=== PATIENT | female | born 1975 | race Caucasian/White ===

== ENCOUNTER 2020-05-25 07:30 | Outpatient (REF) | payer OTHER, SELFPAY ==
[2020-05-25 08:56] LABS: MANUAL DIFF FLAG NO
[2020-05-25 09:08] LABS: Basophils Absolute Auto 0.1 X10*3/uL (0.0-0.2); Basophils Percent Auto 0.9 % (0-2); Eosinophils Absolute Auto 0.4 X10*3/uL (0.0-0.4); Hematocrit 42.8 % (37-47); Hemoglobin 14.1 g/dl (12.0-16.0); Imm Gran Abs Auto 0.02 X10*3/uL (0.00-0.03); Imm Gran Pct Auto 0.3 % (0.0-0.4); Lymphocytes Absolute Auto 1.6 X10*3/uL (1.2-4.9); Lymphocytes Percent Auto 23.3 % (20-40); Mean Corpuscular HGB Conc 32.9 g/dl (31.0-35.0); Mean Corpuscular Hemoglobin 30.5 pg (27.0-33.0); Mean Corpuscular Volume 92.4 fL (80-98); Mean Platelet Volume 11.2 fL (9.4-12.3); Monocytes Absolute Auto 0.7 X10*3/uL (0.1-1.2); Monocytes Percent Auto 10.2 % (2-11); Neutrophils Absolute Auto 4.1 X10*3/uL (2.0-8.3); Neutrophils Percent Auto 59.3 % (45-73); Platelet Count 242 X10*3/uL (160-400); Red Blood Count 4.63 X10*6/uL (4.20-5.50); Red Cell Distribution Width 12.3 % (11.0-16.0)
[2020-05-25 09:11] LABS: Glucose Urine UA NEG (NEG); Leukocyte Esterase Urine NEG (NEG); Nitrite Urine NEG (NEG); PH 5.5 (5.0-8.0); Specific Gravity - Urine 1.025 (1.005-1.025); Urine Blood 2+ (NEG); Urine Ketones NEG (NEG); Urine Protein NEG (NEG-TRACE)
[2020-05-25 09:15] LABS: Appearance Urine HAZY; Color Urine YELLOW
[2020-05-25 09:23] LABS: Alanine Aminotransferase 19 U/L (0-31); Albumin Level 4.6 g/dL (3.5-5.0); Alkaline Phosphatase 73 U/L (39-117); Anion Gap 13 (12-20); Aspartate Amino Transferase 14 U/L (5-31); Bilirubin Total 0.4 mg/dL (0.0-1.0); Blood Urea Nitrogen 15 mg/dL (9-16); Calcium 9.1 mg/dL (8.4-10.2); Carbon Dioxide 25 mmol/L (22-29); Chloride 106 mmol/L (96-108); Cholesterol 204 mg/dL; Estimated Glomerular Filt Rate > 60; Glucose Fasting 98 mg/dL (60-99); HDL Cholesterol 77 mg/dL; LDL Cholesterol Calculated 117 mg/dl; Potassium 4.7 mmol/l (3.3-5.1); Sodium 139 mmol/L (135-145); Total Protein 7.6 g/dL (6.5-8.0); Triglycerides 54 mg/dL
[2020-05-25 09:23] LABS: Bacteria Urine 4+ /LPF; Squamous Epithelial Cell Urine 2+ /LPF; WBC Urine 0-2 /HPF (0-4)
== END 2020-05-25 07:31 | disposition home or self-care (01) ==
LOC: HO.LAB 07:30
PROVIDERS: Visit Provider Internal Medicine
DX: R31.9 Hematuria, unspecified (principal); Z00.00 Encounter for general adult medical examination without abnormal findings; I10 Essential (primary) hypertension
CPT/HCPCS: 36415; 80053; 80061; 81001; 81003; 85025

== ENCOUNTER 2021-06-08 10:15 | Outpatient (REF) | payer OTHER, SELFPAY ==
[2021-06-08 10:17] LABS: MANUAL DIFF FLAG NO
[2021-06-08 11:02] LABS: Basophils Absolute Auto 0.1 X10*3/uL (0.0-0.2); Basophils Percent Auto 0.6 % (0-2); Eosinophils Absolute Auto 0.5 X10*3/uL (0.0-0.4); Eosinophils Percent Auto 6.1 % (0-4); Hematocrit 43.2 % (37.0-47.0); Hemoglobin 14.1 g/dl (12.0-16.0); Imm Gran Abs Auto 0.03 X10*3/uL (0.00-0.03); Imm Gran Pct Auto 0.4 % (0.0-0.4); Lymphocytes Percent Auto 25.8 % (20-40); Mean Corpuscular HGB Conc 32.6 g/dl (31.0-35.0); Mean Corpuscular Hemoglobin 29.3 pg (27.0-33.0); Mean Corpuscular Volume 89.8 fL (80.0-98.0); Mean Platelet Volume 10.6 fL (9.4-12.3); Monocytes Absolute Auto 0.7 X10*3/uL (0.1-1.2); Monocytes Percent Auto 8.9 % (2-11); Neutrophils Absolute Auto 4.5 x10*3/uL (2.0-8.3); Neutrophils Percent Auto 58.2 % (45-73); Platelet Count 242 X10*3/uL (160-400); Red Blood Count 4.81 X10*6/uL (4.20-5.50); Red Cell Distribution Width 12.3 % (11.0-16.0); White Blood Count 7.7 X10*3/uL (4.8-10.8)
[2021-06-08 11:16] LABS: Appearance Urine HAZY; Color Urine YELLOW; Glucose Urine UA NEG (NEG); Leukocyte Esterase Urine TRACE (NEG); Nitrite Urine NEG (NEG); Urine Blood 1+ (NEG); Urine Ketones NEG (NEG); Urine Protein NEG (NEG-TRACE)
[2021-06-08 11:28] LABS: Alanine Aminotransferase 23 U/L (0-31); Albumin Level 4.4 g/dL (3.5-5.0); Alkaline Phosphatase 80 U/L (39-117); Anion Gap 13 (12-20); Aspartate Amino Transferase 17 U/L (5-31); Bilirubin Total 0.5 mg/dL (0.0-1.0); Blood Urea Nitrogen 13 mg/dL (9-16); Calcium 9.8 mg/dL (8.4-10.2); Carbon Dioxide 24 mmol/L (22-29); Chloride 107 mmol/L (96-108); Cholesterol 201 mg/dL; Estimated Glomerular Filt Rate > 60; Glucose Fasting 103 mg/dL (60-99); HDL Cholesterol 59 mg/dL; LDL Cholesterol Calculated 125 mg/dl; Potassium 4.5 mmol/L (3.3-5.1); Sodium 139 mmol/L (135-145); Total Protein 7.8 g/dL (6.5-8.0); Triglycerides 87 mg/dL
[2021-06-08 11:45] LABS: Bacteria Urine 2+ /LPF; Squamous Epithelial Cell Urine 1+ /LPF; WBC Urine 0-2 /HPF (0-4)
== END 2021-06-08 10:16 | disposition home or self-care (01) ==
LOC: HO.LNP 10:15
PROVIDERS: Visit Provider Internal Medicine
DX: Z00.00 Encounter for general adult medical examination without abnormal findings (principal); I10 Essential (primary) hypertension; R31.9 Hematuria, unspecified
CPT/HCPCS: 80053; 80061; 81001; 81003; 85025

== ENCOUNTER 2022-05-06 08:50 | Day surgery (SDC) | payer OTHER, SELFPAY ==
--- NOTE | 2022-05-05 12:23 | HO.ANESPROP2 ---
Documented by User: Aby Carrillo NP 05/05/22 12:24 HPI - Anesthesia Eval Consult details Narrative: 46yo F for Upper Endoscopy and Colonoscopy [facility], [facility] Surgical History Surgical History History of ear surgery Hx of tonsillectomy Social History Social History Patient Tobacco Use Status: Former Tobacco user Quit Date: 2009 Use of substances other than those prescribed or required for medical reasons: No Are you DNR?: No Advance Directives: No Advance Directives Information Provided: Yes Meds Allergies Allergy/AdvReac Type Severity Reaction Status Date / Time amoxicillin Allergy Unknown Verified 05/05/22 12:12 azithromycin Allergy Unknown Verified 05/05/22 12:12 Exam Exam Date and Time: May 05, 2022 122 Assessment and Plan Assessment Anesthesia Assessment: Chart Reviewed Documented by User: Kiara Klein MD 05/06/22 10:05 [facility] Active Problems Active Problems: Snores but denies CLOTILDE. No sleep study Obesity Family History Family history of problems with anesthesia: No Surgical History Surgical History History of ear surgery Hx of tonsillectomy History of Problems with Anesthesia: No Social History Social History Patient Tobacco Use Status: Former Tobacco user Quit Date: 2009 Use of substances other than those prescribed or required for medical reasons: No Are you DNR?: No Advance Directives: No Advance Directives Information Provided: Yes Meds Allergies Allergy/AdvReac Type Severity Reaction Status Date / Time amoxicillin Allergy Unknown Verified 05/05/22 12:12 azithromycin Allergy Unknown Verified 05/05/22 12:12 Exam Height,Weight and Vital Signs: Height 5 ft 7 in Weight 108.862 kg Vital Signs Temp Pulse Resp BP Pulse Ox O2 Del Method 05/06/22 09:23 97.4 F 82 18 164/109 H 98 Room Air Pertinent Lab Results Pertinent Lab Results: Lab Results 05/06/22 Range/Units Unknown Urine Test NEGATIVE (NEGATIVE) Narrative Narrative: Healing cold sore corner of mouth left Airway Mallampati Class: II (Small mouth opening) TM Dist: >3cm Neck ROM: Full Loose/Missing/Broken Teeth: No (Denies broken, loose, missing teeth) Heart: RRR Lungs: CTAB Assessment and Plan Assessment Anesthesia Assessment: Anesthesia Plan Discussed Final Anesthetic Review Family History of Problems with Anesthesia: No History of Problems with Anesthesia: No NPO: Yes ASA Class: III Final Preanesthetic Review: No Changes in Pt Med Stat, Meds/Allgs Chart Reviewed, Consent Obtained/Reviewed and Anes Risks/Benef Reviewed Patient Risk: Intermediate Procedure Risk: Low Assessment/Block/Sedation in SS: Assess/Block/Sedation-SS Anesthetic Plan Anesthetic Plan: GA and MAC: Disposition: Standard PACU
[2022-05-06 09:23] VITALS: BP 164/109; PULSE 82; RESP 18; TEMP 36.3; O2SAT 98; BMI 37.5
[2022-05-06 09:24] LABS: UPreg QC Valid YES; Urine Pregnancy NEGATIVE (NEGATIVE)
[2022-05-06] MEDS: Lactated Ringers 1,000 ML 100 ML IVCONT (09:45)
[2022-05-06 11:04] VITALS: BP 138/88; PULSE 82; RESP 16; TEMP 36.1; O2SAT 99
--- NOTE | 2022-05-06 11:10 | P.BOP_ITS ---
Brief Operative Note Date of Service: 05/06/22 Pre-op diagnosis: GERD, Screening Post-op diagnosis: other (Hiatal hernia, Diverticulosis) Procedure: EGD with biopsies, Colonoscopy to the cecum Surgeon: Zbigniew Hernandez Anesthesia: MAC Was an Patient Safety Coordinator used for this Procedure?: No Estimated blood loss (mL): 2.0 Pathology: other (A. EG Junction at 32cm B. Esophagus at 25cm) Condition: stable Disposition: PACU
[2022-05-06 11:19] VITALS: BP 140/89; PULSE 79; RESP 16; O2SAT 97
[2022-05-06 11:28] VITALS: BP 139/94; PULSE 77; RESP 14; TEMP 36.2; O2SAT 99
--- NOTE | 2022-05-06 11:57 | OP_ITS ---
SURGEON: Zbigniew Hernandez MD INDICATIONS: The patient presents for evaluation of gastroesophageal reflux and colorectal cancer screening. Full consent has been obtained from her for this, including risks of bleeding and perforation. PREOPERATIVE DIAGNOSIS: Gastroesophageal reflux and colorectal cancer screening. POSTOPERATIVE DIAGNOSIS: PROCEDURE PERFORMED: Esophagogastroduodenoscopy with biopsies, and colonoscopy to the cecum. ESTIMATED BLOOD LOSS: COMPLICATIONS: ANESTHESIA: Monitored anesthesia care. ASSISTANTS: SPECIMENS: POSTOPERATIVE DIAGNOSES: Gastroesophageal reflux and colorectal cancer screening, moderate-sized hiatal hernia, diverticulosis, and internal hemorrhoids. DESCRIPTION OF PROCEDURE: The patient was placed in the left lateral decubitus position. The Olympus video gastroscope was passed in the posterior oropharynx and upper esophagus under direct vision. The scope was passed slowly to the distal esophagus. The gastroesophageal junction appeared at 32 cm. This area was notable for some edema, erythema, and some minimal friability. There were no erosions, ulceration, nor stricture. The scope easily entered into the stomach. There was a moderate-sized hiatal hernia. The hiatal hernia mucosa appeared normal. The scope was advanced to the pylorus and the duodenum was cannulated to the descending portion. The duodenum including the bulb appeared normal without mass or ulceration. The scope was withdrawn back into the stomach. The gastric antrum and body appeared normal with good peristalsis. The scope was retroflexed visualizing the proximal stomach carefully, which appeared normal, without any sign of mass or ulceration. Scope was straightened and withdrawn back to the esophagus. The gastroesophageal junction appeared patent, and I did not feel it needed dilation. Biopsies were obtained at the EG junction at 32 cm. Proximal to this, the esophageal mucosa appeared normal. I did not visualize any proximal esophageal rings. Biopsies were obtained at 25 cm. The scope was withdrawn from the patient. She was turned around for the colonoscopy. The digital rectal exam revealed no abnormalities. The Olympus video pediatric colonoscope was entered into the rectum and advanced easily to the cecum. Once in the cecum, I did identify a normal-appearing cecal pouch with appendiceal orifice and a normal-appearing ileocecal valve. There was transillumination of light deep in the right lower quadrant. The scope was slowly withdrawn assessing all mucosal surfaces carefully. Preparation was excellent. The entire cecum appeared normal. I did not visualize any sign of polyps, colitis, nor angiodysplasia. There were occasional diverticula in the sigmoid colon. In the rectum, the scope was retroflexed visualizing small internal hemorrhoids, but no other pathology. The rectal mucosa appeared normal. The scope was straightened and withdrawn from the patient. She tolerated both procedures well and was returned to the recovery area in stable condition. IMPRESSION: 1. Hiatal hernia, gastroesophageal reflux. 2. Occasional sigmoid diverticulosis. 3. Internal hemorrhoids. PLAN: Given today's negative colonoscopy, I would recommend a followup colonoscopy in 10 years for further screening. Given the upper endoscopy findings and her symptoms, I do suspect she is having episodes of esophageal spasm in relation to the hiatal hernia and eating her food too quickly. I shall start her on omeprazole 20 mg daily. I advised her that eating a healthy diet, with small portions, slowly and carefully will help her symptoms as well. The hiatal hernia is probably playing a role in this as well since when she overeats that can be contribute to the reflux and spasm during a meal, with resultant dysphagia. I did advise her to see me in 2022 for a followup visit as well. MD BERT Santana/BRITTNEY / [id number] MTDD
== END 2022-05-06 11:55 | disposition home or self-care (01) ==
PROVIDERS: Nurse Practitioner; PCP Internal Medicine; Visit Provider Internal Medicine
PROC: (CPT 45378; principal; 2022-05-06 10:00)
DX: Z12.11 Encounter for screening for malignant neoplasm of colon (principal); K57.30 Diverticulosis of large intestine without perforation or abscess without bleeding; K64.8 Other hemorrhoids; K64.4 Residual hemorrhoidal skin tags; K21.9 Gastro-esophageal reflux disease without esophagitis; Z88.1 Allergy status to other antibiotic agents; Z87.891 Personal history of nicotine dependence
CPT/HCPCS: 45378; 43239; 81025; 88305

== ENCOUNTER → 2022-06-03 08:36 | Outpatient (BNVA) | payer OTHER, SELFPAY | PROVIDERS: PCP Internal Medicine; Visit Provider Physician Assistant Surgical | DX: E66.9 Obesity, unspecified (principal) ==

== ENCOUNTER 2022-07-01 10:40 | Outpatient (REF) | payer OTHER, SELFPAY ==
[2022-07-01 10:44] LABS: MANUAL DIFF FLAG NO
[2022-07-01 10:57] LABS: Basophils Absolute Auto 0.1 X10*3/uL (0.0-0.2); Basophils Percent Auto 0.8 % (0-2); Eosinophils Absolute Auto 0.6 X10*3/uL (0.0-0.4); Eosinophils Percent Auto 7.2 % (0-4); Hematocrit 41.5 % (37.0-47.0); Imm Gran Abs Auto 0.02 X10*3/uL (0.00-0.03); Imm Gran Pct Auto 0.3 % (0.0-0.4); Lymphocytes Absolute Auto 1.8 X10*3/uL (1.2-4.9); Lymphocytes Percent Auto 22.6 % (20-40); Mean Corpuscular HGB Conc 33.7 g/dl (31.0-35.0); Mean Corpuscular Hemoglobin 29.7 pg (27.0-33.0); Mean Corpuscular Volume 87.9 fL (80.0-98.0); Mean Platelet Volume 10.7 fL (9.4-12.3); Monocytes Absolute Auto 0.7 X10*3/uL (0.1-1.2); Monocytes Percent Auto 8.5 % (2-11); Neutrophils Absolute Auto 4.8 x10*3/uL (2.0-8.3); Neutrophils Percent Auto 60.6 % (45-73); Platelet Count 255 X10*3/uL (160-400); Red Blood Count 4.72 X10*6/uL (4.20-5.50); Red Cell Distribution Width 12.5 % (11.0-16.0)
[2022-07-01 10:58] LABS: Appearance Urine Clear; Color Urine Yellow; Glucose Urine UA Negative (Negative); Leukocyte Esterase Urine Small (1+) (Negative); Nitrite Urine Negative (Negative); PH 7.5 (5.0-9.0); UMIC TRIGGER UACC YES; Urine Blood Trace (Negative); Urine Ketones Negative (Negative); Urine Protein Negative (Neg-Trace)
[2022-07-01 11:11] LABS: Bacteria Urine 1+ (None Seen); Hyaline Casts Urine 0-2 /LPF (0-2); UACC Culture Trigger YES
[2022-07-01 11:14] LABS: Alanine Aminotransferase 24 U/L (0-31); Albumin Level 4.3 g/dL (3.5-5.0); Alkaline Phosphatase 80 U/L (39-117); Anion Gap 14 (12-20); Aspartate Amino Transferase 18 U/L (5-31); Bilirubin Total 0.6 mg/dL (0.0-1.0); Blood Urea Nitrogen 11 mg/dL (9-16); Calcium 9.4 mg/dL (8.4-10.2); Carbon Dioxide 25 mmol/L (22-29); Chloride 106 mmol/L (96-108); Cholesterol 205 mg/dL; Estimated Glomerular Filt Rate > 60; Glucose Fasting 88 mg/dL (60-99); HDL Cholesterol 62 mg/dL; LDL Cholesterol Calculated 129 mg/dl; Potassium 4.5 mmol/L (3.3-5.1); Sodium 140 mmol/L (135-145); Total Protein 7.4 g/dL (6.5-8.0); Triglycerides 74 mg/dL
== END 2022-07-01 10:41 | disposition home or self-care (01) ==
LOC: HO.LNP 10:40
PROVIDERS: Visit Provider Internal Medicine
DX: Z00.00 Encounter for general adult medical examination without abnormal findings (principal); I10 Essential (primary) hypertension; R31.9 Hematuria, unspecified
CPT/HCPCS: 80053; 80061; 81001; 85025; 87086

== ENCOUNTER 2023-07-06 07:37 | Outpatient (REF) | payer OTHER, SELFPAY ==
[2023-07-06 07:55] LABS: MANUAL DIFF FLAG NO
[2023-07-06 08:27] LABS: Basophils Absolute Auto 0.1 X10*3/uL (0.0-0.2); Basophils Percent Auto 0.9 % (0-2); Eosinophils Absolute Auto 0.4 X10*3/uL (0.0-0.4); Eosinophils Percent Auto 4.6 % (0-4); Hematocrit 41.1 % (37.0-47.0); Hemoglobin 14.3 g/dl (12.0-16.0); Imm Gran Abs Auto 0.05 X10*3/uL (0.00-0.03); Imm Gran Pct Auto 0.6 % (0.0-0.4); Lymphocytes Absolute Auto 1.9 X10*3/uL (1.2-4.9); Lymphocytes Percent Auto 23.2 % (20-40); Mean Corpuscular HGB Conc 34.8 g/dl (31.0-35.0); Mean Corpuscular Hemoglobin 30.4 pg (27.0-33.0); Mean Corpuscular Volume 87.3 fL (80.0-98.0); Mean Platelet Volume 10.6 fL (9.4-12.3); Monocytes Absolute Auto 0.7 X10*3/uL (0.1-1.2); Monocytes Percent Auto 8.7 % (2-11); Neutrophils Absolute Auto 5.1 x10*3/uL (2.0-8.3); Platelet Count 270 X10*3/uL (160-400); Red Blood Count 4.71 X10*6/uL (4.20-5.50); Red Cell Distribution Width 12.4 % (11.0-16.0); White Blood Count 8.2 X10*3/uL (4.8-10.8)
[2023-07-06 08:33] LABS: Appearance Urine Clear; Color Urine Yellow; Glucose Urine UA Negative (Negative); Leukocyte Esterase Urine Negative (Negative); Nitrite Urine Negative (Negative); PH 5.5 (5.0-9.0); UMIC TRIGGER UACC YES; Urine Blood Small (1+) (Negative); Urine Ketones Negative (Negative); Urine Protein Negative (Neg-Trace)
[2023-07-06 08:54] LABS: Bacteria Urine Trace (None Seen); Hyaline Casts Urine 0-2 /LPF (0-2); RBC Urine 0-2 /HPF (0-2); Squamous Epithelial Cell Urine 0-2 /HPF (0-2); WBC Urine 0-5 /HPF (0-5)
[2023-07-06 09:02] LABS: Alanine Aminotransferase 23 U/L (0-31); Albumin Level 4.4 g/dL (3.5-5.0); Alkaline Phosphatase 82 U/L (39-117); Anion Gap 13 (12-20); Aspartate Amino Transferase 16 U/L (5-31); Bilirubin Total 0.4 mg/dL (0.0-1.0); Blood Urea Nitrogen 14 mg/dL (9-16); Calcium 9.8 mg/dL (8.4-10.2); Carbon Dioxide 21 mmol/L (22-29); Chloride 104 mmol/L (96-108); Cholesterol 190 mg/dL (<200); Estimated Glomerular Filt Rate > 60; Glucose Fasting 100 mg/dL (60-99); HDL Cholesterol 56 mg/dL (>40); LDL Cholesterol Calculated 121 mg/dL (<100); Sodium 134 mmol/L (135-145); Total Protein 8.1 g/dL (6.5-8.0); Triglycerides 69 mg/dL (<150)
== END 2023-07-06 07:38 | disposition home or self-care (01) ==
LOC: HO.LAB 07:37
PROVIDERS: Visit Provider Internal Medicine
DX: Z00.00 Encounter for general adult medical examination without abnormal findings (principal); I10 Essential (primary) hypertension
CPT/HCPCS: 36415; 80053; 80061; 81001; 85025

== ENCOUNTER 2023-07-14 07:06 | Outpatient (REF) | payer OTHER, SELFPAY ==
--- NOTE | ~2023-07-14 | XR_ITS ---
EXAMINATION: XR CHEST CLINICAL INFORMATION: Wheezing. COMPARISON: None available. TECHNIQUE: 2 views of the chest were obtained. FINDINGS: Mild degenerative changes in the thoracic spine. No pleural effusion. The lungs are well inflated. The heart size is normal. Mild bibasilar streaky opacities may represent bronchiectatic change and/or atelectasis, although pneumonia could also contribute to this appearance. XR/XR chest 2V IMPRESSION: Mild bibasilar streaky opacities may represent bronchiectatic change and/or atelectasis, although pneumonia could also contribute to this appearance.
== END 2023-07-14 07:07 | disposition home or self-care (01) ==
LOC: HO.XRAY 07:06
PROVIDERS: PCP Internal Medicine; Visit Provider Internal Medicine
DX: R06.2 Wheezing (principal)
CPT/HCPCS: 71046

== ENCOUNTER 2023-07-28 07:20 | Outpatient (REF) | payer OTHER, SELFPAY ==
--- NOTE | ~2023-07-28 | XR_ITS ---
EXAMINATION: XR CHEST CLINICAL INFORMATION: Wheezing. COMPARISON: 07/14/2023 TECHNIQUE: 2 views of the chest were obtained. FINDINGS: The lungs are well inflated. There is no gross pneumothorax. Mild degenerative changes in the thoracic spine. No pleural effusion. Heart size is normal. Mild bilateral central peribronchial thickening. Mild bibasilar opacities may represent prominent vasculature, atelectasis and/or bronchiectatic change. XR/XR chest 2V IMPRESSION: Mild bilateral central peribronchial thickening. Mild bibasilar opacities may represent prominent vasculature, atelectasis and/or bronchiectatic change. An inflammatory/infectious process could also be considered in the appropriate clinical setting.
== END 2023-07-28 07:21 | disposition home or self-care (01) ==
LOC: HO.XRAY 07:20
PROVIDERS: PCP Internal Medicine; Visit Provider Internal Medicine
DX: R06.2 Wheezing (principal)
CPT/HCPCS: 71046

== ENCOUNTER 2024-07-09 10:34 | Outpatient (REF) | payer OTHER, SELFPAY ==
[2024-07-09 10:36] LABS: MANUAL DIFF FLAG NO
[2024-07-09 11:20] LABS: Appearance Urine Clear; Basophils Absolute Auto 0.1 X10*3/uL (0.0-0.2); Basophils Percent Auto 0.7 % (0-2); Color Urine Yellow; Eosinophils Absolute Auto 0.3 X10*3/uL (0.0-0.4); Eosinophils Percent Auto 3.7 % (0-4); Glucose Urine UA Negative (Negative); Hematocrit 43.9 % (37.0-47.0); Hemoglobin 14.6 g/dl (12.0-16.0); Imm Gran Abs Auto 0.05 X10*3/uL (0.00-0.03); Imm Gran Pct Auto 0.5 % (0.0-0.4); Leukocyte Esterase Urine Negative (Negative); Lymphocytes Absolute Auto 2.1 X10*3/uL (1.2-4.9); Lymphocytes Percent Auto 22.7 % (20-40); Mean Corpuscular HGB Conc 33.3 g/dl (31.0-35.0); Mean Corpuscular Hemoglobin 29.5 pg (27.0-33.0); Mean Corpuscular Volume 88.7 fL (80.0-98.0); Mean Platelet Volume 10.6 fL (9.4-12.3); Monocytes Absolute Auto 0.9 X10*3/uL (0.1-1.2); Monocytes Percent Auto 9.3 % (2-11); Neutrophils Absolute Auto 5.8 x10*3/uL (2.0-8.3); Neutrophils Percent Auto 63.1 % (45-73); Nitrite Urine Negative (Negative); Platelet Count 334 X10*3/uL (160-400); Red Blood Count 4.95 X10*6/uL (4.20-5.50); Red Cell Distribution Width 12.5 % (11.0-16.0); UMIC TRIGGER UACC YES; Urine Blood Trace (Negative); Urine Ketones Negative (Negative); Urine Protein Negative (Neg-Trace); White Blood Count 9.2 X10*3/uL (4.8-10.8)
[2024-07-09 11:27] LABS: Bacteria Urine Trace (None Seen); RBC Urine 0-2 /HPF (0-2); WBC Urine 0-5 /HPF (0-5)
--- OUTSIDE RECORDS SUMMARY | 2024-07-09 11:33 | XMS_ITS ---
Author Organization Adrien Lovelace MD Address [address] [place] [phone] Care Team Providers Care Flight Inspector Name Role Phone Adrien Lovelace Primary Care Provider REASON FOR VISIT refill Medications Medication SIG (Take, Route, Fr equency, Duration) Notes Start Date End Date Status valACYclovir HCl 1 GM take 2 tablets twi ce a day orally x1 day Orally twice a day for 7 days Active Encounters Encounter Location Date Provider Diagnosis Adrien Lovelace MD [address] [place] [phone] 04/26/2024 Adrien Lovelace Cold sore B00.1 Assessments [...] days Next Appt Details Provider Name:Adrien kraus, 07/19/2024 09:30:00 AM, [address] [facility], Suite [facility], [place], [place], [phone], Progress Notes * MADIHA Fabiola JDOB:0 1975 (48 yo F)Acc No.[id number]:04/26/2024 Patient:?Jade Alexander :1975???Age:48 Y???Sex:Female Address:[address] [place] [address] * Refills? Refill valACYclovir HCl Tablet, 1 GM, Orally, 20, take 2 tablets twice a day orally x1 day, twice a day, 7 days, Refills=5 * true * Date:? Generated for Christelle robles/Radha/Eleanoritting on:?07/09/2024 11:33 AM EST
--- OUTSIDE RECORDS SUMMARY | 2024-07-09 11:34 | XMS_ITS | Patient Health Record ---
Author Organization [facility] Address [address] [place] [phone] Care Team Providers Care Chief Development Officer Name Role Phone Adrien Lovelace MD Primary Care Provider Zbigniew Pemberton Unavailable [phone] ALLERGIES Allergen (clinical drug ingredient) Drug/Non Drug Allergy documented on EMR Reaction Allergy Type Onset Date Status azithromycin Azithromycin Unknown Drug Allergy A ctive amoxicillin Amoxicillin Unknown Drug Allergy Act madhuri REASON FOR REFERRAL No Information MEDICATIONS Medication SIG (Take, Route, Frequency, Duration) Notes Start Date End Date Status Mirena (52 MG) 20 MCG/DAY as directed Intrauterine Active Omeprazole 20 MG TAKE 1 CAPSULE BY [facility] EVERY DAY IN THE MORNING for 90 Active Lisinopril-hydroCHLOROthi azide 10-12.5 MG Oral for 90 Active IMMUNIZATIONS Vaccine Route Administration Date Status Comme nts Influenza Unknown 03/16/2022 Refused SOCIAL HISTORY Tobacco Use: Social History Observation Description Date Details (start date - stop date) Former Smoker NA - NA Sex Assigned At : Social History Observation Description Sex Assigned At Unknown Tobacco Use/Smoking Question Answer Notes Patient is a former smoker Alcohol Screen Question Answer Notes Did you have a drink contain ing alcohol in the past year? Yes How often did you have a dri nk containing alcohol in the past year? Monthly or less (1 point) How many drinks did you have on a typical day when you were drinking in the past year? 1 or 2 drinks (0 point) How often did you have 6 or more drinks on one occasion in the past year? Never (0 point) Points 1 Interpretation Negative PROBLEMS Problem Type ICD Code Onset Dates Problem Status W/U Status Risk SNOMED Code Notes Problem GERD (gastroesophageal reflux disease) (K21.9) Active confirmed Gastroesophagea l reflux disease (926891292) Problem Colon cancer screening (Z12.11) Active confirmed Colon can cer screening (468500852) Problem Diverticulosis of large intestine without perforation or abscess without bleeding (K57.30) Active confirmed Diverticul ar disease of colon (304354317) Problem Gastroesophageal reflux disease (K21.9) Active confirmed Gastroesophagea l reflux disease (071351262) Problem Gastroesophageal reflux disease without esophagitis (K21.9) Active confirmed 442245797 Problem 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) Active confirmed 337096910 Problem Hiatal hernia (K44.9) Active confirmed 68175990 PLAN OF TREATMENT Future Test Test Name Order Date UPPER GI ENDOSCOPY 03/16/2022 COLONOSCOPY 03/16/2022 Insurance Providers Payer Name Payer Address Payer Phone Subscriber Number Group Number Insured Name Patient Relationship to Insured Coverage Start Date Coverage End Date [facility] [address] [place] [phone] [id number] LILLIANA WATTS Self - patient is the insured MEDICAL (GENERAL) HISTORY Medical History History ICD Code Denies AL,DM,CVA,Lung disease,renal dise ase HTN Negative screening colonoscopy in [facility] er 2021 EGD 04/2022 with a moderate sized hiatal hernia, gastroesophageal reflux, and tiny areas of intestinal metaplasia at the gastroesophageal junction without dysplasia; biopsies were negative for eosinophilic esophagitis Surgical History Surgery Date(Month/Year) Ears 1983 Tonsils 1991
--- OUTSIDE RECORDS SUMMARY | 2024-07-09 11:34 | XMS_ITS ---
Author Organization Adrien Lovelace MD Address [address] [place], [place] [phone] Care Team Providers Care Call Center Agent Name Role Phone Adrien Lovelace Primary Care Provider [phone] Allergies Allergen (clinical drug ingredient) Drug/Non Drug Allergy documented on EMR Reaction Allergy Type Onset Date Status amoxicillin / clavulanate Augmentin rash Drug Allergy Active azithromycin Z-Pack (uncoded) rash Allergy Active REASON FOR VISIT Sinus, c/o headache nonproductive cough, congestion x 3 weeks, Video [phone] Medications Medication SIG (Take, Route, Frequency, Duration) [...] Location Date Provider Diagnosis Adrien Lovelace MD [address] [place] [address] [place] [phone] 03/18/2024 Adrien Lovelace Acute recurrent maxillary sinusitis [...] for use Next Appt Details Provider Name:Adrien Welch ier, 07/19/2024 09:30:00 AM, [address] [place] [address], [place] [address], [place], [place], [phone], Progress Notes * Fabiola ALEXANDER JDOB:0 1975 (48 yo F)Acc No.[id number]:03/18/2024 Patient:?Jade Alexander Provider:?Adrien Lovelace MD :1975???Age:48 Y???Sex:Female D ate:03/18/2024 Address:[address] [place] [address] Subjective: * Chief Complaints: * ???SinusC/o headache nonprod uctive cough, congestion x 3 weeksVideo [phone] * HPI: ???Symptom(s):?Telehealth?Location of provider rendering services:?[address], [address],?Location of patient:?at address listed in demographics for today's visit,?Patient identification confirmed using:?Name, , SSN, Insurance information,?Telehealth method:?Video conference where patient is visible to the provider of care,?Consent:?Patient verbally consented to treatment, Patient verbally consented to billing insurance company, Patient informed of any privacy concerns related to method of visit.? patient is a 48 yo female video telehealth, here as emergency. cough congestion for 3 weeks. * ROS:?General/Constitutional:?Denies?Chills.?Denies?Fatigue.?Denies?Fever.?Admits?Headache.?ENT:?Patient denies?decreased sense of smell, any loss of taste, sore throat.?Denies?Ear pain.?Admits?Sinus pain.?Denies?Sore throat.?Respiratory:?Admits?Cough.?Denies?Shortness of breath at rest.?Denies?Shortness of breath with exertion.?Gastrointestinal:?Denies?Diarrhea.?Denies?Nausea.?Musculoskeletal:?Patient denies?muscle aches.?Peripheral Vascular:?Patient denies?red and blue toes.? * Medical History:? * Surgical History:? * Hospitalization/Major Diagno stic Procedure:? * Medications:?TakingOmeprazol e 20 MG Capsule Delayed Release 1 capsule [...] MCG/24HR Intrauterine Device as directed Intrauterine Taking Lisinopril- hydroCHLOROthiazide 10-12.5 MG Tablet TAKE 1 TABLET BY [...] reviewed and reconciled with the patient * Allergies:?Z-Pack: rashAugme ntin: rashyes[Allergies Verified] Objective: * Vitals:?Ht: 68, Wt:257, BMI: 39.07 weight at home 257 BP not taken no temp. * Examination: ???General Examination: ?GENERAL APPEARANCE:?alert, well hydrated, in no distress.? Assessment: * Assessment: 1.?Acute recurrent maxillary sinusitis - J01.01 (Primary)? Plan: * Treatment: * Procedure Codes:? * * Sign off status: Completed true * Provider:?Adrien Lovelace MD Date:?1 Generated for Christelle robles/Radha/eTransmitting on:?07/09/2024 11:34 AM EST History and Physical Notes * HPI (History of Present Illness) Category Sub-Category Detail Notes Category Not es Symptom(s) [facility] [address], [address] [...]
--- OUTSIDE RECORDS SUMMARY | 2024-07-09 11:34 | XMS_ITS ---
Author Organization [facility] Address [address] [place] [address] Care Team Providers Care Tester/Lift Trucker Name Role Phone Adrien Lovelace MD Primary Care Provider Zbigniew Pemberton Unavailable [phone] ALLERGIES Allergen (clinical drug ingredient) Drug/Non Drug Allergy documented on EMR Reaction Allergy Type Onset Date Status azithromycin Azithromycin Unknown Drug Allergy A ctive amoxicillin Amoxicillin Unknown Drug Allergy Act madhuri REASON FOR VISIT Patient presents today for gerd MEDICATIONS Medication SIG (Take, Route, Frequency, Duration) Notes Start Date End Date Status Mirena (52 MG) 20 MCG/DAY as directed Intrauterine Active Omeprazole 20 MG TAKE 1 CAPSULE BY [facility] EVERY MORNING for 90 Active Lisinopril-hydroCHLOROthi azide 10-12.5 MG Oral for 90 Active SOCIAL HISTORY Tobacco Use: Social History Observation [...] W/U Status Risk SNOMED Code Notes Problem Gastroesophageal reflux disease without esophagitis (K21.9) Active confirmed 490237193 Problem 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) Active confirmed 676455862 Problem Hiatal hernia (K44.9) Active confirmed 58920430 VITAL SIGNS BMI 37.59 kg/m2 03/16/2023 Blood pressure systolic 000 mm Hg 03/16/20 23 Blood pressure diastolic 00 mm Hg 023 Height 67 in 03/16/2023 Temperature 98.0 degrees Fahrenheit 03/16/20 23 Weight 240 lbs 03/16/2023 Encounters Encounter Location Date Provider Diagnosis [facility] [address] [place] [address] 03/16/2023 Zbigniew Mary Gastroesophageal ref lux disease without esophagitis K21.9 ; Clinton's esophagus without dysplasia K22.70 and Hiatal hernia K44.9 ASSESSMENTS Encounter Date Diagnosis Assessment Notes Treatment Notes Treatment Clinical Notes 03/16/2023 Gastroesophageal reflux disease without esophagitis (ICD-10 - K21.9) Continue omeprazole Repeat upper endoscopy in 04/202503/16/2023 Clinton's esophagus without dysplasia (ICD-10 - K22.70) 03/16/2023 Hiatal hernia (ICD-1 0 - K44.9) 03/16/2023 Other Repeat colonoscopy in 2031 PLAN OF TREATMENT Treatment Notes Assessment Notes Gastroesophageal reflux dise ase without esophagitis Continue omeprazole Repeat upper endoscopy in 04/2025 Other Repeat colonoscopy i n 2031 Next Appt Details Follow Up: prn, Reason: Progress Notes * Examination Category Sub-Category Detail Notes General Examination GENERAL APPEARANCE: pleasant , well nourished, well developed, in no acute distress HEAD: EYES: sclera non-icteric EARS: NOSE: THROAT: NECK/THYROID: no cervical lymphade nopathy, neck supple HEART: S1, S2 normal CHEST: LUNGS: clear to auscultatio n bilaterally ABDOMEN: normal bowel sounds, no guarding or rigidity, no guarding or rigidity, no masses palpable, soft, nontender, nondistended NEUROLOGIC: alert and oriented SKIN: nonjaundiced, no spi brijesh angiomata EXTREMITIES: no edema PERIPHERAL PULSES: BACK: BREASTS: MUSCULOSKELETAL: MALE GENITOURINARY: LYMPH NODES: RECTAL EXAM: FEMALE GENITOURINARY: ORAL CAVITY: mucosa moist
--- OUTSIDE RECORDS SUMMARY | 2024-07-09 11:34 | XMS_ITS ---
Author Organization Adrien Lovelace MD Address [address] [place], [place] [phone] Care Team Providers Care Tailer Off Name Role Phone Adrien Lovelace Primary Care Provider [phone] Results Component Value Reference Range Notes Complete Blood Count Auto Di ff (Not yet reviewed by provider) Interpretation: Performing Lab:[facility], [address] [place] [phone] Notes/Report: White Blood Count 9.2 4.8-10.8 X10*3/uL [...] X10*3/uL NRBC Abs Auto 0.000 0.0-0.012 X10*3/uL UA ClnCatch+Micro w/rflx Cul t (Not yet reviewed by provider) Interpretation: Performing Lab:[facility], [address] [place] [phone] Notes/Report: Urine, Clean Catch Color Urine Yellow Appearance Urine Clear PH 6.0 5.0-9.0 Glucose Urine UA Negative Negative mg/dL Urine Blood Trace Negative Specific [place] - Urine 1.020 1.005-1.025 Urine Protein Negative [...] Date Provider Diagnosis Adrien Lovelace MD [address] [facility] [address] [place], [place] [phone] 07/09/2024 Adrien Lovelace Annual physical exam Z00.00 ; Essential hypertension I10 and Hematuria R31.9 Assessments Encounter Date Diagnosis (ICD Code) Assessment Notes Treatment Notes Treatment Clinical Notes Section Notes 07/09/2024 Annual physical exam (ICD-10 - Z00.00) 07/09/2024 Essential hypertension (ICD-10 - I10) 07/09/2024 Hematuria (ICD-10 - R31.9) Plan Of Treatment Pending Test Test Name Order Date Complete Blood Count Auto Diff 5 Comprehensive [place]. Panel Fast 5 Lipid Panel 07/09/2024 UA ClnCatch+Micro w/rflx Cult 07/09/2024 Next Appt Details Provider Name:Adrien gordillor, 07/19/2024 09:30:00 AM, [address], [address], [place], [place], [phone], Progress Notes * Fabiola ALEXANDER JDOB:0 1975 (48 yo F)Acc No.[id number]:07/09/2024 Progress Note Patient:?Jade ALEXANDER J Provider:?Adrien Lovelace MD :1975???Age:48 Y???Sex:Female D ate:07/09/2024 Address:[address] [place], [place] [phone] Subjective: * Chief Complaints: * ???1. FASTING LABS. * Medical History:? Objective: * Vitals:? Assessment: * Assessment: 1.?Annual physical exam - Z0 0.00 (Primary)???2.?Essential hypertension - I10???3.?Hematuria - R31.9??? Plan: * Treatment: 2.?Essential hypertension?LAB: Complete Blood Count Auto Diff (Collection Date & Time - 07/09/2024 07:00 AM) ?LAB: Comprehensive [place]. Panel Fast ?LAB: Lipid Panel ?LAB: UA ClnCatch+Micro w/rflx Cult (Collection Date & Time - 07/09/2024 07:00 AM) 3.?Hematuria?LAB: Complete Blood Count Auto Diff (Collection Date & Time - 07/09/2024 07:00 AM) ?LAB: Comprehensive [place]. Panel Fast ?LAB: Lipid Panel ?LAB: UA ClnCatch+Micro w/rflx Cult (Collection Date & Time - 07/09/2024 07:00 AM) * Procedure Codes:?08484 VENIP UNCT, ROUTINE* * * The named appointment provid er may or may not be the originator of this progress note, and it is not deemed complete until electronically signed by the appointment provider. Sign off status: Pending * Provider:?Adrien Lovelace MD Date:?0 07/09/2024 Generated for Christelle robles/Radha/Eleanoritting on:?07/09/2024 11:34 AM EST
[2024-07-09 12:36] LABS: Alanine Aminotransferase 42 U/L (0-31); Albumin Level 4.6 g/dL (3.5-5.0); Alkaline Phosphatase 88 U/L (39-117); Anion Gap 16 (12-20); Aspartate Amino Transferase 28 U/L (5-31); Bilirubin Total 0.6 mg/dL (0.0-1.0); Blood Urea Nitrogen 14 mg/dL (9-16); Carbon Dioxide 23 mmol/L (22-29); Chloride 104 mmol/L (96-108); Cholesterol 186 mg/dL (<200); Estimated Glomerular Filt Rate > 60; Glucose Fasting 103 mg/dL (60-99); HDL Cholesterol 60 mg/dL (>40); LDL Cholesterol Calculated 105 mg/dL (<100); Potassium 4.1 mmol/L (3.3-5.1); Sodium 139 mmol/L (135-145); Total Protein 8.7 g/dL (6.5-8.0); Triglycerides 107 mg/dL (<150)
== END 2024-07-09 10:35 | disposition home or self-care (01) ==
LOC: HO.LNP 10:34
PROVIDERS: Visit Provider Internal Medicine
DX: Z00.00 Encounter for general adult medical examination without abnormal findings (principal); I10 Essential (primary) hypertension; R31.9 Hematuria, unspecified
CPT/HCPCS: 80053; 80061; 81001; 85025

== ENCOUNTER 2024-08-07 07:54 | Outpatient (REF) | payer OTHER, SELFPAY ==
--- OUTSIDE RECORDS SUMMARY | 2024-08-07 07:58 | XMS_ITS | Patient Health Record ---
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 Artist Name Role Phone Adrien Lovelace Primary Care Provider Allergies Allergen (clinical drug ingredient) Drug/Non Drug Allergy documented on EMR Reaction Allergy Type Onset Date Status amoxicillin / clavulanate Augmentin rash Drug Allergy Active azithromycin Z-Pack (uncoded) rash Allergy Active Results Component Value Reference Range Notes Complete Blood Count Auto Di ff Reviewed date:07/09/2024 05:00:18 PM Interpretation: Performing Lab:[facility], [address] [place] [phone] Notes/Report: White Blood Count 9.2 4.8-10.8 X10*3/uL [...] NRBC Abs Auto 0.000 0.0-0.012 X10*3/uL Comprehensive [place]. Panel Fa st Reviewed date:07/09/2024 05:01:55 PM Interpretation: Performing Lab:[facility], [address] [place] [phone] Notes/Report: Sodium 139 135-145 mmol/L Potassium 4.1 [...] Panel Reviewed date:07/09/2024 12:37:51 PM Interpretation: Performing Lab:[facility], [address] [place] [phone] Notes/Report: Triglycerides 107 <150 mg/dL Desirable Triglyceride: [...] t Reviewed date:07/09/2024 12:38:19 PM Interpretation: Performing Lab:[facility], [address] [place] [phone] Notes/Report: Urine, Clean Catch Color Urine Yellow Appearance Urine Clear PH 6.0 5.0-9.0 Glucose Urine UA Negative Negative mg/dL Urine Blood Trace Negative Specific [place] - Urine 1.020 1.005-1.025 Urine Protein Negative Neg-Trace mg/dL Urine Ketones Negative Negative mg/dL Nitrite Urine Negative Negative Leukocyte Esterase Urine Negative Negative RBC Urine 0-2 0-2 /HPF WBC Urine 0-5 0-5 /HPF Squamous Epithelial Cell Urine 3-5 0-2 /HPF Bacteria Urine Trace None Seen Hyaline Casts Urine 3-5 0-2 /LPF MAMMOGRAM DIGITAL BILATERAL SCREEN Reviewed date:04/09/2024 12:38:38 PM Interpretation:Negative Performing Lab: Notes/Report: Negative Reason For Referral Reason please eval hearing loss for a hearing test Diagnosis 1 Hearing loss (H91.90 ) Referral Organization Adrien Lovelace MD Referring Provider First Name Adrien Referring Provider Last Name [place] Referring Provider Speciality Internal M edicine Referred Provider [facility] [place] Referred Provider Specialty Audiologists General Notes Marisol Kumar 0 07/19/2024 10:07:57 AM >order faxedJosé Annette 07/25/2024 02:59:30 PM >referral info mailed Referral Priority Routine Referral Appointment Date 08/07/2024 Reason needs a sleep study Diagnosis 1 CLOTILDE (obstructive sle ep apnea) (G47.33) Referral Organization Adrien Lovelace MD Referring Provider First Name Adrien Referring Provider Last Name [place] Referring Provider Speciality Internal M edicine Referred Provider MIGUE MALDONADO Referred Provider Specialty Sleep Medici ne General Notes Marisol Kumar 0 07/19/2024 10:09:35 AM >info faxedJosé Annette 07/26/2024 02:34:09 PM >referral info mailed to patient Referral Priority Routine Referral Appointment Date 12/12/2024 Medications Medication SIG (Take, Route, Frequency, Duration) Notes Start Date End Date Status Albuterol Sulfate HFA 108 (90 Base) MCG/ACT 1 puff as needed Inhalation every 4 hrs as needed for 30 days 07/13/2023 Not-Taking Betamethasone Dipropionate Aug 0.05 % 1 application Externally Once a day for 14 days 08/23/2022 Not-Taking valACYclovir HCl 1 GM take 2 tablets twi ce a day orally x1 day Orally twice a day for 7 days Active Hydrocortisone Acetate 1 % 1 application Externally Once a day for 14 days 06/03/2019 Not-Taking Omeprazole 20 MG 1 capsule 30 minutes before morning meal Orally Once a day for 30 day(s) Active Mirena 20 MCG/24HR as directed Intrauterine Active Valsartan-hydroCHLOROthia zide 160-12.5 MG 1 tablet Orally Once a day for 30 days 07/19/2024 Active Immunizations Vaccine Route Administration Date Status Comme nts DECLINED, FLU Unknown 03/11/2013 Administered Tetanus Unknown 11/30/2013 Administered Given by [facility] [place] [facility] Fluarix Quadrivalent IM Intramuscular 03/13/2020 Administe red Covid Vaccine Unknown 08/30/2020 Administered Pfizer Covid Vaccine Unknown 09/21/2020 Administered Pfizer CV S SARS-COV-2 Pfizer Unknown 08/30/2020 Administered SARS-COV-2 Pfizer Unknown 09/21/2020 Administered SARS-COV-2 Pfizer Unknown 06/03/2021 Administered DECLINED, FLU Unknown 03/20/2014 Refused Flu Vaccine Unknown 03/24/2015 Refused Fluarix Quadrivalent Unknown 04/18/2016 Refused Fluarix Quadrivalent Unknown 04/11/2017 Refused TDaP Unknown 04/25/2017 Refused Fluarix Quadrivalent Unknown 05/01/2018 Refused Fluarix Quadrivalent Unknown 05/06/2019 Refused Fluarix Quadrivalent Unknown 07/06/2021 Refused Social History Tobacco Use: Social History Observation [...] Problem Status W/U Status Risk Notes Problem 77344519 Hematuria (R31.9) Active confirmed Problem 92588495 Anxiety (F41.9) Active confirmed Problem 151228226 Body mass index (BMI) 30.0-30.9, adult (Z68.30) Active confirmed Problem 95600638 Essential hypertension (I10) Active confirmed Problem 895656748 Mild intermittent asthma without complication (J45.20) Active confirmed Problem 30139405 Intrinsic eczema (L20.84) Active confirmed Problem 6799348 Cold sore (B00.1) Active confirmed Problem Schatzki's ring (05849980) Schatzki's ring (K22.2) Active confirmed Problem 468835708 Tension headache (G44.209) Active confirmed Problem 999763682309583 Carpal tunnel syndrome of right wrist (G56.01) Active confirmed Problem Hearing loss (68288009) Hearing loss (H91.90) Active confirmed Problem 259481833 Drug allergy (Z88.9) Active confirmed Problem 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 Problem Obstructive sleep apnea syndrome (24158605) CLOTILDE (obstructive sleep apnea) (G47.33) Active confirmed Problem 351921101 BMI 34.0-34.9,adult (Z68.34) Active confirmed Problem 87911979 Allergic rhinitis due to other allergen (J30.89) Active confirmed Problem 43289280 Menopausal symptoms (N95.1) Active confirmed Vital Signs Blood pressure diastolic 70 mm Hg 07/19/2024 rose ght is jup 3 pounds since 03-18-24 Height 68 in 07/19/2024 weight is jup 3 pounds since 03-18-24 Blood pressure systolic 118 mm Hg 07/19/2024 weig ht is jup 3 pounds since 03-18-24 Weight 260 lbs 07/19/2024 weight is jup 3 pounds since 03-18-24 BMI 39.53 kg/m2 07/19/2024 weight is jup 3 pounds since 03-18-24 Encounters Encounter Location Date Provider Diagnosis Adrien Lovelace MD [address] [place] [id number] 07/09/2024 Adrien Lovelace Annual physical exam Z00.00 ; Essential hypertension I10 and Hematuria R31.9 Adrien Lovelace MD [address] [place] [id number] 03/18/2024 Adrien Lovelace Acute recurrent maxillary sinusitis J01.01 Adrien Lovelace MD [address] [place] [id number] 07/19/2024 Adrien Lovelace Hearing loss H91.90 ; Annual physical exam Z00.00 ; CLOTILDE (obstructive sleep apnea) G47.33 ; ROMÁN inhibitor intolerance Z78.9 ; Essential hypertension I10 ; Schatzki's ring K22.2 and Depression screening Z13.31 Adrien Lovelace MD [address] [place] [id number] 09/28/2023 Adrien Lovelace MD [address] [place] [address] Drive [address] [place] [id number] 04/26/2024 Adrien Bombardier Cold sore B00.1 Assessments Encounter Date Diagnosis (ICD Code) Assessment Notes Treatment Notes Treatment Clinical Notes Section Notes 07/09/2024 Annual physical exam (ICD-10 - Z00.00) 03/18/2024 Acute recurrent maxillary sinusitis (ICD-10 - J01.01) patient verbalized understanding of medication and directions for use 07/19/2024 Hearing loss (ICD-10 - H91.90) send for hearing evaluation 07/19/2024 Annual physical exam (ICD-10 - Z00.00) Labs reviewed and discussed with patient 04/26/2024 Cold sore (ICD-10 - B00.1) 07/09/2024 Essential hypertension (ICD-10 - I10) 07/19/2024 CLOTILDE (obstructive sleep apnea) (ICD-10 - G47.33) send for sleep study 07/09/2024 Hematuria (ICD-10 - R31.9) 07/19/2024 ROMÁN inhibitor intolerance (ICD-10 - Z78.9) 07/19/2024 Essential hypertension (ICD-10 - I10) 07/19/2024 Schatzki's ring (ICD-10 - K22.2) 07/19/2024 Depression screening (ICD-10 - Z13.31) Plan Of Treatment Pending Test Test Name Order Date XR CHEST 2 VIEW PA & LAT 07/13/2023 XR chest 2V 07/18/2023 Next Appt Details Provider Name:Adrien kraus, 10/17/2024 07:45:00 AM, [address] [place] [address], [address], [phone], Provider Name:Adrien kraus, 07/18/2025 07:15:00 AM, [address] [place] [address], [place] [address], [place], [place], [phone], Provider Name:Adrien kraus, 07/25/2025 08:00:00 AM, [address] [place] [address], [place] [address], [place], [place], [phone], Insurance Providers Payer Name Payer Address Payer Phone Subscriber Number Group Number Insured Name Patient Relationship to Insured Coverage Start Date Coverage End Date [address] [facility] [phone] [id number] Fabiola Wang Self - patient is the insured Medical (General) History Medical History History ICD Code 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
--- OUTSIDE RECORDS SUMMARY | 2024-08-07 07:58 | XMS_ITS ---
Author Organization Ardien Lovelace MD Address [address] [place] [phone] Care Team Providers Care Purler Name Role Phone Adrien Lovelace Primary Care Provider [phone] REASON FOR VISIT refill Medications Medication SIG (Take, Route, Fr equency, Duration) Notes Start Date End Date Status valACYclovir HCl 1 GM take 2 tablets twi ce a day orally x1 day Orally twice a day for 7 days Active Encounters Encounter Location Date Provider Diagnosis Adrien Lovelace MD [address] [place] [id number] 04/26/2024 Adrien Lovelace Cold sore B00.1 Assessments [...] days Next Appt Details Provider Name:Adrien kraus, 10/17/2024 07:45:00 AM, [address] [facility], Suite [facility], [place], [place], [phone], Provider Name:Adrien Welch ier, 07/18/2025 07:15:00 AM, [address], [address], [place], [phone], Provider Name:Adrien Welch ier, 07/25/2025 08:00:00 AM, [address], [address], [place], [phone], Progress Notes * Fabiola ALEXANDERDOB:0 1975 (48 yo F)Acc No.[id number]:04/26/2024 Patient:?Jade Alexander :1975???Age:48 Y???Sex:Female Address:[address] [place] [address] * Refills? Refill valACYclovir HCl Tablet, 1 GM, Orally, 20, take 2 tablets twice a day orally x1 day, twice a day, 7 days, Refills=5 * true * Date:? Generated for Christelle robles/Radha/eTransmitting on:?08/07/2024 07:57 AM EDT
--- OUTSIDE RECORDS SUMMARY | 2024-08-07 07:58 | XMS_ITS ---
Author Organization [facility] Address [address] [place] [address] Care Team Providers Care Shower Enclosure Installer Name Role Phone Adrien Lovelace MD Primary Care Provider Zbigniew Pemberton Unavailable [phone] Allergies Allergen (clinical drug ingredient) Drug/Non Drug Allergy documented on EMR Reaction Allergy Type Onset Date Status azithromycin Azithromycin Unknown Drug Allergy A ctive amoxicillin Amoxicillin Unknown Drug Allergy Act madhuri REASON FOR VISIT Patient presents today for gerd Medications Medication SIG (Take, Route, Frequency, Duration) Notes Start Date End Date Status Mirena (52 MG) 20 MCG/DAY as directed Intrauterine Active Omeprazole 20 MG TAKE 1 CAPSULE BY [facility] EVERY MORNING for 90 Active Lisinopril-hydroCHLOROthi azide 10-12.5 MG Oral for 90 Active Social History Tobacco Use: Social History Observation [...] Never (0 point) Points 1 Interpretation Negative Section Notes: Nonsmoker, no sig alcohol Problems Problem Type SNOMED Code ICD Code Onset Dates Problem Status W/U Status Risk Notes Problem 117429005 Gastroesophageal reflux disease without esophagitis (K21.9) Active confirmed Problem 624175844 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) Active confirmed Problem [id number] Hiatal hernia (K44.9) Active confirmed Vital Signs Temperature 98.0 degrees Fahrenheit 03/16/20 23 Blood pressure systolic 000 mm Hg 03/16/20 23 Blood pressure diastolic 00 mm Hg 023 Height 67 in 03/16/2023 Weight 240 lbs 03/16/2023 BMI 37.59 kg/m2 03/16/2023 Encounters Encounter Location Date Provider Diagnosis [facility] [address] [place] [address] 03/16/2023 Zbigniew Hernandez Gastroesophageal ref lux disease without esophagitis K21.9 ; Clinton's esophagus without dysplasia K22.70 and Hiatal hernia K44.9 Assessments Encounter Date Diagnosis (ICD Code) Assessment Notes Treatment Notes Treatment Clinical Notes Section Notes 03/16/2023 Gastroesophageal reflux disease without esophagitis (ICD-10 - K21.9) Continue omeprazole Repeat upper endoscopy in 04/2025 Overall, Liya appears well and seems to have benefited from the addition of omeprazole. We did review the upper endoscopy findings in detail. I advised her that the omeprazole seems to be helping by decreasing acid reflux and esophageal spasm. I did advise her to certainly continue that but to also try to eat small meals, eat slowly, and eat healthy so as to try to lose weight. We did review the diagnosis of Clinton's esophagus and I advised her of the theoretical increased risk of esophageal cancer. I advised her that I would recommend a repeat upper endoscopy in 2024 for further surveillance in that regard. I did recommend a followup screening colonoscopy in 2031 given her negative colonoscopy last year and no family history of colon cancer. If things remain stable I will see her in 2024 for a followup upper endoscopy. I advised her to call me prior to that if she has any problems or questions I can be of assistance with. Liya was comfortable with this plan. Thank you again for allowing me to participate in Liya's care. I shall continue to keep you advised of her progress. 03/16/2023 Clinton's esophagus without dysplasia (ICD-10 - K22.70) Overall, Liya appears well and seems to have benefited from the addition of omeprazole. We did review the upper endoscopy findings in detail. I advised her that the omeprazole seems to be helping by decreasing acid reflux and esophageal spasm. I did advise her to certainly continue that but to also try to eat small meals, eat slowly, and eat healthy so as to try to lose weight. We did review the diagnosis of Clinton's esophagus and I advised her of the theoretical increased risk of esophageal cancer. I advised her that I would recommend a repeat upper endoscopy in 2024 for further surveillance in that regard. I did recommend a followup screening colonoscopy in 2031 given her negative colonoscopy last year and no family history of colon cancer. If things remain stable I will see her in 2024 for a followup upper endoscopy. I advised her to call me prior to that if she has any problems or questions I can be of assistance with. Liya was comfortable with this plan. Thank you again for allowing me to participate in Liya's care. I shall continue to keep you advised of her progress. 03/16/2023 Hiatal hernia (ICD-10 - K44.9) Overall, Liya appears well and seems to have benefited from the addition of omeprazole. We did review the upper endoscopy findings in detail. I advised her that the omeprazole seems to be helping by decreasing acid reflux and esophageal spasm. I did advise her to certainly continue that but to also try to eat small meals, eat slowly, and eat healthy so as to try to lose weight. We did review the diagnosis of Clinton's esophagus and I advised her of the theoretical increased risk of esophageal cancer. I advised her that I would recommend a repeat upper endoscopy in 2024 for further surveillance in that regard. I did recommend a followup screening colonoscopy in 2031 given her negative colonoscopy last year and no family history of colon cancer. If things remain stable I will see her in 2024 for a followup upper endoscopy. I advised her to call me prior to that if she has any problems or questions I can be of assistance with. Liya was comfortable with this plan. Thank you again for allowing me to participate in Liya's care. I shall continue to keep you advised of her progress. 03/16/2023 Other Repeat colonoscopy in 2031 Overall, Liya appears well and seems to have benefited from the addition of omeprazole. We did review the upper endoscopy findings in detail. I advised her that the omeprazole seems to be helping by decreasing acid reflux and esophageal spasm. I did advise her to certainly continue that but to also try to eat small meals, eat slowly, and eat healthy so as to try to lose weight. We did review the diagnosis of Clinton's esophagus and I advised her of the theoretical increased risk of esophageal cancer. I advised her that I would recommend a repeat upper endoscopy in 2024 for further surveillance in that regard. I did recommend a followup screening colonoscopy in 2031 given her negative colonoscopy last year and no family history of colon cancer. If things remain stable I will see her in 2024 for a followup upper endoscopy. I advised her to call me prior to that if she has any problems or questions I can be of assistance with. Liya was comfortable with this plan. Thank you again for allowing me to participate in Liya's care. I shall continue to keep you advised of her progress. Plan Of Treatment Treatment Notes Assessment Notes Gastroesophageal reflux dise ase without esophagitis Continue omeprazole Repeat upper endoscopy in 04/2025 Other Repeat colonoscopy i n 2031 Next Appt Details Follow Up: prn, Reason: Progress Notes * MADIHA ILLLIANA JDOB:0 1975 (47 yo F)Acc No.[id number]:03/16/2023 Progress Notes Patient:?MONIQUE CLEARY Provider:?Zbigniew Hernandez MD :1975???Age:47 Y???Sex:Female D ate:03/16/2023 Address:[address] [place], [place] [id number] Pcp:Adrien Lovelace MD Subjective: * Chief Complaints: * ???Patient presents today fo r gerd * HPI: ???incontinence:? I saw Liya in followup today in regard to her history of gastroesophageal reflux with associated esophageal spasm, a hiatal hernia, and the finding of Clinton's esophagus. ?I last saw Liya in April of 2022, at which time she underwent an upper endoscopy and colonoscopy. Her screening colonoscopy was negative for any polyps. Her upper endoscopy revealed a moderate size hiatal hernia and some changes of reflux. There was no esophagitis but biopsies from the gastroesophageal junction did reveal some small areas of Clinton's esophagus without dysplasia. At the time of the endoscopy I started her on omeprazole 20 mg daily. ?Since that time she reports that she has been feeling much better on the omeprazole. She's had no further episodes of dysphagia, esophageal spasm with chest discomfort, nor heartburn. She has been trying to eat a little bit slower as well. Her bowel movements are regular and without any signs of bleeding. She denies abdominal pain, jaundice, nor unintentional weight loss. * ROS:?General/Constitutional:?Change in appetite?denies.?Chills?denies.?Fatigue?denies.?Ophthalmologic:?Comments?all negative.?ENT:?Comments?all negative.?Respiratory:?hemoptysis?denies.?Cough?denies.?Cardiovascular:?Chest pain?denies.?Orthopnea?denies.?Gastrointestinal:?Comments?See HPI for details.?Genitourinary:?Hematuria?denies.?Dysuria?denies.?Musculoskeletal:?Painful joints?denies.?Weakness?denies.?Skin:?Itching?denies.?Rash?denies.?Neurologic:?Headache?denies.?Seizures?denies.?Psychiatric:?Comments?all negative.? * Medical History:? * Surgical History:?Ears 1984T onsils 1990 * Hospitalization/Major Diagno stic Procedure:?Denies Past Hospitalization * Family History:?Father: vane rios, diagnosed with HTN (hypertension), Colon polyps.?Mother: alive.? No family history of colon cancer or liver cancer. * Social History:?Tobacco Use:?Tobacco Use/Smoking?Patient is a?former smoker.?Drugs/Alcohol:?Alcohol Screen?Did you have a drink containing alcohol in the past year??Yes,?How often did you have a drink containing alcohol in the past year??Monthly or less (1 point), How many drinks did you have on a typical day when you were drinking in the past year??1 or 2 drinks (0 point),?How often did you have 6 or more drinks on one occasion in the past year??Never (0 point),?Points?1,?Interpretation?Negative.?Miscellaneous:?Marital status: . 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 ???Nonsmoker, no sig alcohol. * Medications:?TakingMirena (5 2 MG) 20 MCG/DAY Intrauterine Device as directed Intrauterine Omeprazole 20 MG Capsule Delayed Release TAKE 1 CAPSULE BY MOUTH EVERY MORNING Lisinopril-hydroCHLOROthiazide 10-12.5 MG Tablet Oral Medication List reviewed and reconciled with the patientTaking Mirena (52 MG) 20 MCG/DAY Intrauterine Device as directed Intrauterine Taking Omeprazole 20 MG Capsule Delayed Release TAKE 1 CAPSULE BY MOUTH EVERY MORNING Taking Lisinopril-hydroCHLOROthiazide 10-12.5 MG Tablet Oral Medication List reviewed and reconciled with the patient * Allergies:?AmoxicillinAzithr omycinyes[Allergies Verified] Objective: * Vitals:?Wt: 240 lbs, Ht: 67 in, BMI:37.59 Index, BP: 000/00 mm Hg, Temp: 98.0. * Examination: ???General Examination: ?GENERAL APPEARANCE:?pleasant, well nourished, well developed, in no acute distress.?EYES:?sclera non-icteric.?ORAL CAVITY:?mucosa moist.?NECK/THYROID:?no cervical lymphadenopathy, neck supple.?SKIN:?nonjaundiced, no spider angiomata.?HEART:?S1, S2 normal.?LUNGS:?clear to auscultation bilaterally.?ABDOMEN:?normal bowel sounds, no guarding or rigidity, no guarding or rigidity, no masses palpable, soft, nontender, nondistended.?EXTREMITIES:?no edema.?NEUROLOGIC:?alert and oriented.? Assessment: * Assessment: 1.?Clinton's esophagus witho ut dysplasia - K22.70 (Primary)?2.?Gastroesophageal reflux disease without esophagitis - K21.9?3.?Hiatal hernia - K44.9? Overall, Liya appears well an d seems to have benefited from the addition of omeprazole. We did review the upper endoscopy findings in detail. I advised her that the omeprazole seems to be helping by decreasing acid reflux and esophageal spasm. I did advise her to certainly continue that but to also try to eat small meals, eat slowly, and eat healthy so as to try to lose weight. We did review the diagnosis of Clinton's esophagus and I advised her of the theoretical increased risk of esophageal cancer. I advised her that I would recommend a repeat upper endoscopy in 2024 for further surveillance in that regard. I did recommend a followup screening colonoscopy in 2031 given her negative colonoscopy last year and no family history of colon cancer. If things remain stable I will see her in 2024 for a followup upper endoscopy. I advised her to call me prior to that if she has any problems or questions I can be of assistance with. Liya was comfortable with this plan. Thank you again for allowing me to participate in Liya's care. I shall continue to keep you advised of her progress. Plan: * Treatment: 2.?Others? Notes: Repeat colonoscopy in 2031.?? * Procedure Codes:?3017F COLOR ECTAL CA SCREEN DOC [id number] Pt scrn tbco and id as [id number] TOBACCO [id number] BP SCR NOT PRFRM REC REASON NOS * Preventive Medicine:? ??Counseling:?Care goal follow-up plan:?Above Normal BMI Follow-up?Giving encouragement to exercise,?BMI management provided?Yes.? * Follow Up:?prn * * Sign off status: Completed true * Provider:?Zbigniew Hernandez MD Date:? 023 Generated for Christelle robles/Radha/Eleanoritting on:?08/07/2024 07:58 AM EDT History and Physical Notes * HPI (History of Present Illness) Category Sub-Category Detail Notes Category Not es incontinence I saw Liya in followup today in regard to her history of gastroesophageal reflux with associated esophageal spasm, a hiatal hernia, and the finding of Clinton's esophagus. I last saw Liya in April of 2022, at which time she underwent an upper endoscopy and colonoscopy. Her screening colonoscopy was negative for any polyps. Her upper endoscopy revealed a moderate size hiatal hernia and some changes of reflux. There was no esophagitis but biopsies from the gastroesophageal junction did reveal some small areas of Clinton's esophagus without dysplasia. At the time of the endoscopy I started her on omeprazole 20 mg daily. Since that time she reports that she has been feeling much better on the omeprazole. She's had no further episodes of dysphagia, esophageal spasm with chest discomfort, nor heartburn. She has been trying to eat a little bit slower as well. Her bowel movements are regular and without any signs of bleeding. She denies abdominal pain, jaundice, nor unintentional weight loss. Examination Category Sub-Category Detail Notes Category Not es General Examination GENERAL APPEARANCE: pleasant , well [...]
--- OUTSIDE RECORDS SUMMARY | 2024-08-07 07:58 | XMS_ITS ---
Author Organization Adrien Lovelace MD Address [address] [place], [place] [id number] Care Team Providers Care Instructor Watch Assembly Name Role Phone Adrien Lovelace Primary Care [...] Internal edicine Referred Provider SPEECH AND HEARING, [facility] Referred Provider Specialty Audiologists General Notes Marisol [...] W/U Status Risk Notes Problem Hearing loss (04523968) Hearing loss (H91.90) Active confirmed Problem Obstructive sleep apnea syndrome (09859164) CLOTILDE (obstructive sleep apnea) (G47.33) Active confirmed Problem Angiotensin converting enzyme inhibitor not tolerated (953274713) 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 Vital Signs Blood pressure systolic 118 mm Hg 07/19/19 25 Blood pressure diastolic 70 mm Hg 025 Height 68 in 07/19/2024 Weight 260 lbs 07/19/2024 BMI 39.53 kg/m2 07/19/2024 weight is jup 3 pounds since 03-18-24 Encounters Encounter Location Date Provider Diagnosis Adrien Lovelace MD [address] [place] [address] [address] [place] [id number] 07/19/2024 Adrien Lovelace Hearing loss H91.90 ; [...] joey hearing loss for a hearing test, [facility] SPEECH [facility] HEARING 07/19/2024 07/19/2024, needs a sleep study, [facility] Next Appt Details Follow Up: 2 Months, Reason: Provider Name:Adrien Welch ier, 10/17/2024 07:45:00 AM, [address], [address], [place], [id number], Provider Name:Adrien Welch ier, 07/18/2025 07:15:00 AM, [address], [address], [place], [phone], Provider Name:Adrien Welch ier, 07/25/2025 08:00:00 AM, [address], [address], [place], [phone], Progress Notes * Fabiola ALEXANDER JDOB:0 1975 (48 yo F)Acc No.[id number]:07/19/2024 Progress Notes Patient:?Jade ALEXANDER Provider:?Adrien Lovelace MD :1975???Age:48 Y???Sex:Female D ate:07/19/2024 Address:[address] [place], [place] [phone] Subjective: * Chief Complaints: * ???ANNUAL EXAM * HPI: ???Depression Screening:?PHQ-9?Little interest or pleasure in doing things?Not at all,?Feeling down, depressed, or hopeless?Not at all,?Trouble falling or staying asleep, or sleeping too much?Not at all,?Feeling tired or having little energy?Not at all,?Poor appetite or overeating?Not at all,?Feeling bad about yourself or that you are a failure, or have let yourself or your family down?Not at all,?Trouble concentrating on things, such as reading the newspaper or watching television?Not at all,?Moving or speaking so slowly that other people could have noticed; or the opposite, being so fidgety or restless that you have been moving around a lot more than usual?Not at all,?Thoughts that you would be better off or of hurting yourself in some way?Not at all,?Total Score?0.?Interpretation and Intervention?Depression Screening Findings?Negative,?Follow-Up for Depression?: review of PHQ-9 found negative result, no follow-up needed.?Communication Needs:?Communication Needs?Does the patient have a hearing impairment?No,?Does the patient have a vision impairment??Yes,?If yes, what is the vision impairment??Glasses,?Does the patient have a cognition impairment??No.?SDOH Questions:?SDOH Questions?In the past year have you been worried about losing housing??No,?In the past year have you or any family members you live with been unable to get any of the following when it was really needed? Check all that apply:?None.?Symptom(s):?patient is a 48 yo fmale here for annual visit with review of recent labs and follow up of chronic issues. * ROS:?General/Constitutional:?Change in appetite?denies.?Chills?denies.?Fever?denies.?Ophthalmologic:?Blurred vision?denies.?Discharge?denies.?Pain?denies.?ENT:?Decreased hearing?denies.?Sore throat?denies.?Swollen glands?denies.?Endocrine:?Cold intolerance?denies.?Excessive thirst?denies.?Heat intolerance?denies.?Weight loss?denies.?Respiratory:?Cough?admits.?Shortness of breath at rest?denies.?Shortness of breath with exertion?denies.?Wheezing?denies.?Cardiovascular:?Chest pain at rest?denies.?Chest pain with exertion?denies.?Irregular heartbeat?denies.?Shortness of breath?denies.?Gastrointestinal:?Abdominal pain?denies.?Change in bowel habits?denies.?Diarrhea?denies.?Nausea?denies.?Rectal bleeding?denies.?Vomiting?denies .?Genitourinary:?Blood in urine?denies.?Difficulty urinating?denies.?Frequent urination?denies.?Urinary incontinence?Denies.?Musculoskeletal:?Patient complaining of?legs hurt when in recliner/ when she sits up is better. when she gets in bed comes on and gets up and walks around. snores a lot.?Painful joints?denies.?Weakness?denies.?Skin:?Dry skin?denies.?Itching?denies.?Denies?Mole(s),? changes in moles, new moles or any lesions of concern.?Denies?Photosensitivity.?Rash?denies.?Neurologic:?Dizziness?denies.?Fainting?denies.?Headache?denies.? * Medical History:? * Surgical History:? * Hospitalization/Major Diagno stic Procedure:? * Family History:?Father: aliv e 73 yrs, hypertension.?Mother: alive 71 yrs.?1 brother(s) , 2 sister(s) - healthy. 1 son(s) , 1 daughter(s) - healthy. .? Denies mental health/substance abuse family history, No pertinent family medical history, Denies mental health/substance abuse family history. * Social History:?Tobacco Use:?Tobacco Use/Smoking?Patient is a?former smoker,?How long has it been since you last smoked??> 10 years,?Additional Findings: Tobacco Non-User?Former smoker, currently using no form of tobacco.?Drugs/Alcohol:?Alcohol Screen?Did you have a drink containing alcohol in the past year??Yes,?How often did you have a drink containing alcohol in the past year??Monthly or less (1 point),?How many drinks did you have on a typical day when you were drinking in the past year??1 or 2 drinks (0 point),?How often did you have 6 or more drinks on one occasion in the past year??Never (0 point),?Points?1,?Interpretation?Negative.?Miscellaneous:?Caffeine: no. Children: yes. Community involvements: no. Exercise: no. Home smoke detector use: yes. Housing: owning. Living with: spouse, family. Marital status: . Occupation: works full-time. Travel outside of the [place]: no. * Medications:?TakingOmeprazol e 20 MG Capsule Delayed [...] and reconciled with the patient * Allergies:?Z-Pack: rashAugmgabriel ntin: claire[Allergies Verified] Objective: * Vitals:?Ht: 68, Wt: 260, BMI :39.53, BP:118/70, Wt-k.94. weight is jup 3 pounds since? 03-18-24. * ???Past Orders: ???Lab:Lipid Panel (Order Da 07/09/2024) (Collection Date & Time - 07/09/2024 07:00 AM) ? Value Reference Range ?Triglycerides 107 <150 - mg/dL ?Cholesterol 186 <200 - m g/dL ?LDL Cholesterol Calculated 105 H <100 - mg/dL ?HDL Cholesterol 60 >40 - mg/dL ???Lab:Complete Blood Count Auto Diff (Order Date - 07/09/2024) (Collection Date & Time - 07/09/2024 07:00 AM) ? Value Reference Range ?White Blood Count 9.2 4. 8-10.8 - X10*3/uL ?Red Blood Count 4.95 4.20 -5.50 - X10*6/uL ?Hemoglobin 14.6 12.0-16.0 - g/dl ?Hematocrit 43.9 37.0-47.0 - % ?Mean Corpuscular Volume 88.7 80.0-98.0 - fL ?Mean Corpuscular Hemoglobin 29.5 27.0-33.0 - pg ?Mean Corpuscular HGB Conc 33.3 31.0-35.0 - g/dl ?Red Cell Distribution Width 12.5 11.0-16.0 - % ?Platelet Count 334 160-4 00 - X10*3/uL ?Mean Platelet Volume 10.6 9.4-12.3 - fL ?Neutrophils Percent Auto 63.1 45-73 - % ?Imm Gran Pct Auto 0.5 H 0. 0-0.4 - % ?Lymphocytes Percent Auto 22.7 20-40 - % ?Monocytes Percent Auto 9.3 2-11 - % ?Eosinophils Percent Auto 3.7 0-4 - % ?Basophils Percent Auto 0.7 0-2 - % ?NRBC Pct Auto 0.0 0.0-0. 2 - /100WBC ?Neutrophils Absolute Auto 5.8 2.0-8.3 - x10*3/uL ?Imm Gran Abs Auto 0.05 H 0. 00-0.03 - X10*3/uL ?Lymphocytes Absolute Auto 2.1 1.2-4.9 - X10*3/uL ?Monocytes Absolute Auto 0.9 0.1-1.2 - X10*3/uL ?Eosinophils Absolute Auto 0.3 0.0-0.4 - X10*3/uL ?Basophils Absolute Auto 0.1 0.0-0.2 - X10*3/uL ?NRBC Abs Auto 0.000 0.0-0. 012 - X10*3/uL ???Lab:Comprehensive [place]. P jairo Fast (Order Date - 07/09/2024) (Collection Date & Time - 07/09/2024 07:00 AM) ? Value Reference Range ?Sodium 139 135-145 - mmo l/L ?Bilirubin Total 0.6 0.0- 1.0 - mg/dL ?Aspartate Amino Transferase 28 5-31 - U/L ?Alanine Aminotransferase 42 H 0-31 - U/L ?Total Protein 8.7 H 6.5-8. 0 - g/dL ?Albumin Level 4.6 3.5-5. 0 - g/dL ?Alkaline Phosphatase 88 39-117 - U/L ?Potassium 4.1 3.3-5.1 - mmol/L ?Chloride 104 96-108 - mm ol/L ?Carbon Dioxide 23 22-29 - mmol/L ?Anion Gap 16 12-20 - ?Blood Urea Nitrogen 14 9-16 - mg/dL ?Creatinine 0.89 0.5-1.4 - mg/dL ?Estimated Glomerular Filt Rate > 60 - ?Glucose Fasting 103 H 60-9 9 - mg/dL ?Calcium 10.0 8.4-10.2 - m g/dL ???Lab:UA ClnCatch+Micro w/r flx Cult (Order Date - 07/09/2024) (Collection Date & Time - 07/09/2024 07:00 AM) ? Value Reference Range ?Color Urine Yellow - ?Appearance Urine Clear - ?PH 6.0 5.0-9.0 - ?Glucose Urine UA Negative Neg ative - mg/dL ?Urine Blood Trace Negative - ?Specific [place] - Urine 1.020 1.005-1.025 - ?Urine Protein Negative Neg-Tr román - mg/dL ?Urine Ketones Negative Negati ve - mg/dL ?Nitrite Urine Negative Negati ve - ?Leukocyte Esterase Urine Negative Negative - ?RBC Urine 0-2 0-2 - /HPF ?WBC Urine 0-5 0-5 - /HPF ?Squamous Epithelial Cell Urine 3-5 0-2 - /HPF ?Bacteria Urine Trace None Seen - ?Hyaline Casts Urine 3-5 0-2 - /LPF * Examination: ???General Examination: ?GENERAL APPEARANCE:?well developed, well nourished, in no acute distress.?HEAD:?normocephalic, atraumatic.?EYES:?pupils equal, round, reactive to light and accommodation, sclera non-icteric.?EARS:?normal.?ORAL CAVITY:?mucosa moist.?THROAT:?clear.?NECK/THYROID:?neck supple, full range of motion, no cervical lymphadenopathy, no bruits.?SKIN:?warm and dry, no suspicious lesions.?HEART:?regular rate and rhythm, S1, S2 normal, no murmurs.?LUNGS:?clear to auscultation bilaterally.?BREASTS:?done by dry cleaner.?ABDOMEN:?soft, nontender, nondistended, bowel sounds present, normal, no organomegaly , no masses palpable.?RECTAL EXAM:?done by dry cleaner.?FEMALE GENITOURINARY:?done by dry cleaner.?EXTREMITIES:?no clubbing, cyanosis, or edema.?NEUROLOGIC:?nonfocal, motor strength normal upper and lower extremities, sensory exam intact.? 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 Plan: * Treatment: 2.?Hearing loss? Stop Lisinopril-hydroCHLOROthiazide Tablet, 10-12.5 MG, TAKE 1 TABLET BY MOUTH EVERY DAY FOR 30 DAYS.?? Notes: send for hearing evaluation? Referral To:[facility] SPEECH [facility] HEARING??Audiologists ?Reason:please eval hearing loss for a hearing test 3.?CLOTILDE (obstructive sleep ap nohelia)? Notes: send for sleep study? Referral To:[facility]??Sleep Medicine ?Reason:needs a sleep study 4.?ROMÁN inhibitor intolerance ? Start Valsartan-hydroCHLOROthiazide Tablet, 160-12.5 MG, 1 tablet, Orally, Once a day, 30 days, 30, Refills 11.?? * Procedure Codes:? * Follow Up:?2 Months * * Sign off status: Completed true * Provider:?Adrien Lovelace MD Date:?0 07/19/2024 Generated for Christelle robles/Radha/Eleanoritting on:?08/07/2024 07:58 AM [...] patient have a vision impairmen t?: Yes ?If yes, what is the vision impairment?: Glasses Does the patient have a cognition impair ment?: No Examination Category Sub-Category Detail Notes Category Not es General Examination GENERAL APPEARANCE: well dev eloped, well nourished, in no acute distress HEAD: normocephalic, atrau matic EYES: pupils equal, round, reactive to light and accommodation, sclera non- icteric EARS: normal THROAT: clear NECK/THYROID: neck supple, [...] cyanosi s, or edema BREASTS: done by dry cleaner RECTAL EXAM: done by dry cleaner FEMALE GENITOURINARY: done by dry cleaner ORAL CAVITY: mucosa moist Consultation Request Notes Referral Date Referring Provider Referred Provider Not es 07/19/2024 Adrien Lovelace SPEECH AND HEARING, [facility] please eval hearing loss for a hearing test 07/19/2024 Adrien Lovelace PAUL needs a eep study
--- OUTSIDE RECORDS SUMMARY | 2024-08-07 07:58 | XMS_ITS ---
Author Organization Adrien Lovelace MD Address [address] [place], [place] [id number] Care Team Providers Care Court Of Appeals Judge Name Role Phone Adrien Lovelace Primary Care Provider Results Component Value Reference Range Notes Complete Blood Count Auto Di ff Reviewed date:07/09/2024 05:00:18 PM Interpretation: Performing Lab:[facility], [address] [place] [phone] Notes/Report: White Blood Count 9.2 4.8-10.8 X10*3/uL [...] NRBC Abs Auto 0.000 0.0-0.012 X10*3/uL Comprehensive [place]. Panel Fa st Reviewed date:07/09/2024 05:01:55 PM Interpretation: Performing Lab:[facility], [address] [place] [phone] Notes/Report: Sodium 139 135-145 mmol/L Potassium 4.1 [...] Panel Reviewed date:07/09/2024 12:37:51 PM Interpretation: Performing Lab:[facility], [address] [place] [phone] Notes/Report: Triglycerides 107 <150 mg/dL Desirable Triglyceride: [...] t Reviewed date:07/09/2024 12:38:19 PM Interpretation: Performing Lab:[facility], [address] [place] [phone] Notes/Report: Urine, Clean Catch Color Urine Yellow Appearance Urine Clear PH 6.0 5.0-9.0 Glucose Urine UA Negative Negative mg/dL Urine Blood Trace Negative Specific [place] - Urine 1.020 1.005-1.025 Urine Protein Negative [...] Location Date Provider Diagnosis Adrien Lovelace MD [address] [place] [address] Drive [address] [place], [place] [phone] 07/09/2024 Adrien Lovelace Annual physical exam Z00.00 ; Essential hypertension I10 and Hematuria R31.9 Assessments Encounter Date Diagnosis (ICD Code) Assessment Notes Treatment Notes Treatment Clinical Notes Section Notes 07/09/2024 Annual physical exam (ICD-10 - Z00.00) 07/09/2024 Essential hypertension (ICD-10 - I10) 07/09/2024 Hematuria (ICD-10 - R31.9) Plan Of Treatment Next Appt Details Provider Name:Adrien Welch ier, 10/17/2024 07:45:00 AM, [address], [address], [place], [place], [phone], Provider Name:Adrien Welch ier, 07/18/2025 07:15:00 AM, [address], [address], [place], [place], [phone], Provider Name:Adrien Welch ier, 07/25/2025 08:00:00 AM, [address], [address], [place], [place], [phone], Progress Notes * Fabiola ALEXANDER JDOB:0 1975 (48 yo F)Acc No.[id number]:07/09/2024 Progress Note Patient:?Jade ALEXANDER Provider:?Adrien Lovelace MD :1975???Age:48 Y???Sex:Female D ate:07/09/2024 Address:[address] [place], [place] [phone] Subjective: * Chief Complaints: * ???1. FASTING LABS. * Medical History:? Objective: * Vitals:? Assessment: * Assessment: 1.?Annual physical exam - Z0 0.00 (Primary)???2.?Essential hypertension - I10???3.?Hematuria - R31.9??? Plan: * Treatment: 2.?Essential hypertension?LAB: Complete Blood Count Auto Diff (Collection Date & Time - 07/09/2024 07:00 AM) ?LAB: Comprehensive [place]. Panel Fast (Collection Date & Time - 07/09/2024 07:00 AM) ?LAB: Lipid Panel (Collection Date & Time - 07/09/2024 07:00 AM) ?LAB: UA ClnCatch+Micro w/rflx Cult (Collection Date & Time - 07/09/2024 07:00 AM) 3.?Hematuria?LAB: Complete Blood Count Auto Diff (Collection Date & Time - 07/09/2024 07:00 AM) ?LAB: Comprehensive [place]. Panel Fast (Collection Date & Time - 07/09/2024 07:00 AM) ?LAB: Lipid Panel (Collection Date & Time - 07/09/2024 07:00 AM) ?LAB: UA ClnCatch+Micro w/rflx Cult (Collection Date & Time - 07/09/2024 07:00 AM) * Procedure Codes:?58783 VENIP UNCT, ROUTINE* * * The named appointment provid er may or may not be the originator of this progress note, and it is not deemed complete until electronically signed by the appointment provider. Sign off status: Pending * Provider:?Adrien Lovelace MD Date:?0 07/09/2024 Generated for Christelle robles/Radha/Eleanoritting on:?08/07/2024 07:58 AM EDT
--- OUTSIDE RECORDS SUMMARY | 2024-08-07 07:58 | XMS_ITS | Patient Health Record ---
Author Organization [facility] Address [address] [place] [phone] Care Team Providers Care Any Commodity Buyer Name Role Phone Adrien Lovelace MD Primary Care Provider Zbigniew Pemberton Unavailable [phone] Allergies Allergen (clinical drug ingredient) Drug/Non Drug Allergy documented on EMR Reaction Allergy Type Onset Date Status azithromycin Azithromycin Unknown Drug Allergy A ctive amoxicillin Amoxicillin Unknown Drug Allergy Act madhuri Reason For Referral No Information Medications Medication SIG (Take, Route, Frequency, Duration) Notes Start Date End Date Status Mirena (52 MG) 20 MCG/DAY as directed Intrauterine Active Omeprazole 20 MG TAKE 1 CAPSULE BY [facility] EVERY DAY IN THE MORNING for 90 Active Lisinopril-hydroCHLOROthi azide 10-12.5 MG Oral for 90 Active Immunizations Vaccine Route Administration Date Status Comme nts Influenza Unknown 03/16/2022 Refused Social History Tobacco Use: Social History [...] Negative Section Notes: Nonsmoker, no sig alcohol Nonsmoker, no sig alcohol Problems Problem Type SNOMED Code ICD Code Onset Dates Problem Status W/U Status Risk Notes Problem Colon cancer screening (337574864) Colon cancer screening (Z12.11) Active confirmed Problem 220736756 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) Active confirmed Problem Diverticular disease of colon (451931742) Diverticulosis of large intestine without perforation or abscess without bleeding (K57.30) Active confirmed Problem Gastroesophageal reflux disease (056985778) Gastroesophageal reflux disease (K21.9) Active confirmed Problem 279287422 Gastroesophageal reflux disease without esophagitis (K21.9) Active confirmed Problem 06344766 Hiatal hernia (K44.9) Active confirmed Problem Gastroesophageal reflux disease (666399345) GERD (gastroesophageal reflux disease) (K21.9) Active confirmed Plan Of Treatment Future Test Test Name Order Date UPPER GI ENDOSCOPY 03/16/2022 COLONOSCOPY 03/16/2022 Insurance Providers Payer Name Payer Address Payer Phone Subscriber Number Group Number Insured Name Patient Relationship to Insured Coverage Start Date Coverage End Date [facility] [place] [address] [place] [phone] [id number] LILLIANA WATTS Self - patient is the insured Medical (General) History Medical History History ICD Code Denies OK,DM,CVA,Lung disease,renal dise ase HTN Negative screening colonoscopy in [facility] er 2021 EGD 04/2022 with a moderate sized hiatal hernia, gastroesophageal reflux, and tiny areas of intestinal metaplasia at the gastroesophageal junction without dysplasia; biopsies were negative for eosinophilic esophagitis Surgical History Surgery Date(Month/Year) Ears 1983 Tonsils 1991
== END 2024-08-07 07:55 | disposition home or self-care (01) ==
LOC: HO.SH 07:54
PROVIDERS: Visit Provider Internal Medicine
DX: Z01.118 Encounter for examination of ears and hearing with other abnormal findings (principal); H93.293 Other abnormal auditory perceptions, bilateral
CPT/HCPCS: 92557

== ENCOUNTER 2025-03-25 08:05 | Outpatient (AMB) | payer OTHER, SELFPAY ==
--- OUTSIDE RECORDS SUMMARY | 2023-09-28 04:43 | XMS_ITS ---
Author Organization Adrien Lovelace MD Address [address] [place] [phone] Care Team Providers Care Esl Teacher Name Role Phone Adrien Lovelace Primary Care Provider [phone] REASON FOR VISIT wants a call back from the nurse Encounters Encounter Location Date Provider Diagnosis Adrien Lovelace MD [address] [place] [address] [address] [place] [phone] 09/28/2023 Adrien Lovelace Plan Of Treatment Next Appt Details Provider Name:Adrien kraus, 04/29/2025 08:15:00 AM, [address] [place] [address], [address] [place] [address], [phone], Provider Name:Adrien kraus, 07/18/2025 07:15:00 AM, [address] [place] [address], [address], [phone], Provider Name:Adrien kraus, 07/25/2025 08:00:00 AM, [address] [place] [address], [address], [phone], Progress Notes * Fabiola ALEXANDERDOB:0 1975 (48 yo F)Acc No.[id number]:09/28/2023 Patient: Fabiola Dickens :1975 A ge:48 Y S ex:Female Address:[address] [place] [phone] * true * Date: Generated for Christelle robles/Radha/Eleanoritting on: 05/25/2024 08:24 AM EST
--- OUTSIDE RECORDS SUMMARY | 2024-03-18 10:30 | XMS_ITS ---
Author Organization Adrien Lovelace MD Address [address] [place], [place] [phone] Care Team Providers Care Medicare Sales Representative Name Role Phone Adrien Lovelace Primary Care Provider Allergies Allergen (clinical drug ingredient) Drug/Non Drug Allergy documented on EMR Reaction Allergy Type Onset Date Status amoxicillin / clavulanate Augmentin rash Drug Allergy Active azithromycin Z-Pack (uncoded) rash Allergy Active REASON FOR VISIT Sinus, c/o headache nonproductive cough, congestion x 3 weeks, Video [phone] Medications Medication SIG (Take, Route, Frequency, Duration) Notes Start Date End Date Status Betamethasone Dipropionate Aug 0.05 % 1 application Externally Once a day for 14 days 08/23/2022 Not-Taking valACYclovir HCl 1 GM take 2 tablets twi ce a day orally x1 day Orally twice a day for 7 days Not-Taking Lisinopril-hydroCHLOROthi azide 10-12.5 MG TAKE 1 TABLET BY MOUTH EVERY DAY FOR 30 DAYS for 90 Active Albuterol Sulfate HFA 108 (90 Base) MCG/ACT 1 puff as needed Inhalation every 4 hrs as needed for 30 days 07/13/2023 Not-Taking Hydrocortisone Acetate 1 % 1 application Externally Once a day for 14 days 06/03/2019 Not-Taking Mirena 20 MCG/24HR as directed Intrauterine Active levoFLOXacin 500 MG 1 tablet Orally Once a day for 10 day(s) 03/18/2024 Active Omeprazole 20 MG 1 capsule 30 minutes before morning meal Orally Once a day for 30 day(s) Active Vital Signs Height 68 in 03/18/2024 Weight 257 lbs 03/18/2024 BMI 39.07 kg/m2 03/18/2024 weight at home 257 BP not ta oscar no temp Encounters Encounter Location Date Provider Diagnosis Adrien Lovelace MD [address] [place] [phone] 03/18/2024 Adrien Lovelace Acute recurrent maxillary sinusitis J01.01 Assessments Encounter Date Diagnosis (ICD Code) Assessment Notes Treatment Notes Treatment Clinical Notes Section Notes 03/18/2024 Acute recurrent maxillary sinusitis (ICD-10 - J01.01) patient verbalized understanding of medication and directions for use Plan Of Treatment Medication Medication Name Sig Start Date Stop Date Notes levoFLOXacin 500 MG 1 tablet Orally Once a day for 10 day(s) 03/18/2024 Treatment Notes Assessment Notes Acute recurrent maxillary sinusitis christen ent verbalized understanding of medication and directions for use Next Appt Details Provider Name:Adrien kraus, 04/29/2025 08:15:00 AM, [address] [place] [address], [phone], Provider Name:Adrien kraus, 07/18/2025 07:15:00 AM, [address] [place] [address], [phone], Provider Name:Adrien kraus, 07/25/2025 08:00:00 AM, [address] [place] [address], [phone], Progress Notes * Fabiola ALEXANDERDOB:0 1975 (48 yo F)Acc No.[id number]:03/18/2024 Patient: Vinnie Fabiola robertson Provider: Hilaria Lovelace MD :1975 A ge:48 Y S ex:Female Date:03/18/2024 Address:[address] [place], [place] [id number] Subjective: * Chief Complaints: * S inusC/o headache nonproductive cough, congestion x 3 weeksVideo [phone] * HPI: S ymptom(s): Telehealth L ocation of provider rendering services: [address], [address], L ocation of patient: a t address listed in demographics for today's visit, P atient identification confirmed using: N moe, , SSN, Insurance information, T elehealth method: V ideo conference where patient is visible to the provider of care, C onsent: P atient verbally consented to treatment, Patient verbally consented to billing insurance company, Patient informed of any privacy concerns related to method of visit. patient is a 48 yo female video telehealth, here as emergency. cough congestion for 3 weeks. * ROS: G eneral/Constitutional: Denies C hills. D enies F atigue. D enies F ever. A dmits H eadache. E NT: Patient denies d ecreased sense of smell, any loss of taste, sore throat. D enies E ar pain. A dmits S inus pain. D enies S ore throat.? R espiratory: Admits C ough. D enies S hortness of breath at rest. D enies S hortness of breath with exertion. G astrointestinal: Denies D iarrhea. D enies N ausea. M usculoskeletal: Patient denies m uscle aches. P eripheral Vascular: Patient denies r ed and blue toes. * Medical History: * Surgical History: * Hospitalization/Major Diagno stic Procedure: * Medications: T akingOmeprazole 20 MG Capsule Delayed Release 1 capsule 30 minutes before morning meal Orally Once a dayMirena 20 MCG/24HR Intrauterine Device as directed Intrauterine Lisinopril-hydroCHLOROthiazide 10-12.5 MG Tablet TAKE 1 TABLET BY MOUTH EVERY DAY FOR 30 DAYS Taking Omeprazole 20 MG Capsule Delayed Release 1 capsule 30 minutes before morning meal Orally Once a dayTaking Mirena 20 MCG/24HR Intrauterine Device as directed Intrauterine Taking Lisinopril-hydroCHLOROthiazide 10-12.5 MG Tablet TAKE 1 TABLET BY MOUTH EVERY DAY FOR 30 DAYS Not-Taking/PRNAlbuterol Sulfate HFA 108 (90 Base) MCG/ACT Aerosol Solution 1 puff as needed Inhalation every 4 hrs as neededBetamethasone Dipropionate Aug 0.05 % Gel 1 application Externally Once a dayvalACYclovir HCl 1 GM Tablet take 2 tablets twice a day orally x1 day Orally twice a dayHydrocortisone Acetate 1 % Cream 1 application Externally Once a dayMedication List reviewed and reconciled with the patientNot-Taking/PRN Albuterol Sulfate HFA 108 (90 Base) MCG/ACT Aerosol Solution 1 puff as needed Inhalation every 4 hrs as neededNot-Taking/PRN Betamethasone Dipropionate Aug 0.05 % Gel 1 application Externally Once a dayNot-Taking/PRN valACYclovir HCl 1 GM Tablet take 2 tablets twice a day orally x1 day Orally twice a dayNot-Taking/PRN Hydrocortisone Acetate 1 % Cream 1 application Externally Once a dayMedication List reviewed and reconciled with the patient * Allergies: Z -Pack: Fabrice: clarie[Allergies Verified] Objective: * Vitals: H t: 68, Wt:257, BMI:39.07 weight at home 257 BP not taken no temp. * Examination: G eneral Examination: GENERAL APPEARANCE: a lert, well hydrated, in no distress.? Assessment: * Assessment: 1. A cute recurrent maxillary sinusitis - J01.01 (Primary) Plan: * Treatment: * Procedure Codes: * * Sign off status: Completed true * Provider: Hilaria Lvoelace MD Date: Generated for Christelle robles/Radha/Cherylsmitting on: 05/25/2024 08:25 AM EST History and Physical Notes * HPI (History of Present Illness) Category Sub-Category Detail Notes Category Not es Symptom(s) [facility] [address], [address] patient is a 48 yo female video telehealth, here as emergency. cough congestion for 3 weeks Location of patient:: at address listed in demographics for today's visit Patient identification confirmed using:: Name, , SSN, Insurance information Telehealth method:: Video co nference where patient is visible to the provider of care Consent:: Patient verbally c onsented to treatment, Patient verbally consented to billing insurance company, Patient informed of any privacy concerns related to method of visit Examination Category Sub-Category Detail Notes Category Not es General Examination GENERAL APPEARANCE: alert, w ell hydrated, in no distress
--- OUTSIDE RECORDS SUMMARY | 2024-04-26 08:36 | XMS_ITS ---
Author Organization Adrien Lovelace MD Address [address] [place] [phone] Care Team Providers Care Chicken Tender Name Role Phone Adrien Lovelace Primary Care Provider REASON FOR VISIT refill Medications Medication SIG (Take, Route, Fr equency, Duration) Notes Start Date End Date Status valACYclovir HCl 1 GM take 2 tablets twi ce a day orally x1 day Orally twice a day for 7 days Active Encounters Encounter Location Date Provider Diagnosis Adrien Lovelace MD [address] [facility] [address] [place] [phone] 04/26/2024 Adrien Lovelace Cold sore B00.1 Assessments Encounter Date Diagnosis (ICD Code) Assessment Notes Treatment Notes Treatment Clinical Notes Section Notes 04/26/2024 Cold sore (ICD-10 - B00.1) Plan Of Treatment Medication Medication Name Sig Start Date Stop Date Notes valACYclovir HCl 1 GM take 2 tablets twi ce a day orally x1 day Orally twice a day for 7 days Next Appt Details Provider Name:Adrien kraus, 04/29/2025 08:15:00 AM, [address] [facility], [address] [facility], [place], [place], [phone], Provider Name:Adrien Welch ier, 07/18/2025 07:15:00 AM, [address], [address], [place], [place], [phone], Provider Name:Adrien Welch ier, 07/25/2025 08:00:00 AM, [address], [address], [place], [place], [phone], Progress Notes * Fabiola ALEXANDERDOB:0 1975 (48 yo F)Acc No.[id number]:04/26/2024 Patient: Vinnie bolivarFabiola rodriguez :1975 A ge:48 Y S ex:Female Address:[address] [place] [id number] * Refills Refill valACYclovir HCl Tablet, 1 GM, Orally, 20, take 2 tablets twice a day orally x1 day, twice a day, 7 days, Refills=5 * true * Date: Generated for Christelle robles/Radha/Cherylsmitting on: 05/25/2024 08:23 AM EST
--- OUTSIDE RECORDS SUMMARY | 2024-07-09 02:00 | XMS_ITS ---
Author Organization Adrien Lovelace MD Address [address] [place], [place] [phone] Care Team Providers Care Pencil Maker Name Role Phone Adrien Lovelace Primary Care Provider [phone] Results Component Value Reference Range Notes Complete Blood Count Auto Di ff Reviewed date:07/09/2024 05:00:18 PM Interpretation: Performing Lab:[facility], [address] [place] [phone] Notes/Report: White Blood Count 9.2 4.8-10.8 X10*3/uL Red Blood Count 4.95 4.20-5.50 X10*6/uL Hemoglobin 14.6 12.0-16.0 g/dl Hematocrit 43.9 37.0-47.0 % Mean Corpuscular Volume 88.7 80.0-98.0 fL Mean Corpuscular Hemoglobin 29.5 27.0-33.0 pg Mean Corpuscular HGB Conc 33.3 31.0-35.0 g/dl Red Cell Distribution Width 12.5 11.0-16.0 % Platelet Count 334 160-400 X10*3/uL Mean Platelet Volume 10.6 9.4-12.3 fL Neutrophils Percent Auto 63.1 45-73 % Imm Gran Pct Auto 0.5 0.0-0.4 % Lymphocytes Percent Auto 22.7 20-40 % Monocytes Percent Auto 9.3 2-11 % Eosinophils Percent Auto 3.7 0-4 % Basophils Percent Auto 0.7 0-2 % NRBC Pct Auto 0.0 0.0-0.2 /100WBC Neutrophils Absolute Auto 5.8 2.0-8.3 x10*3/u L Imm Gran Abs Auto 0.05 0.00-0.03 X10*3/uL Lymphocytes Absolute Auto 2.1 1.2-4.9 X10*3/u L Monocytes Absolute Auto 0.9 0.1-1.2 X10*3/uL Eosinophils Absolute Auto 0.3 0.0-0.4 X10*3/u L Basophils Absolute Auto 0.1 0.0-0.2 X10*3/uL NRBC Abs Auto 0.000 0.0-0.012 X10*3/uL Comprehensive [place]. Panel Fa st Reviewed date:07/09/2024 05:01:55 PM Interpretation: Performing Lab:[facility], [address] [place] [phone] Notes/Report: Sodium 139 135-145 mmol/L Potassium 4.1 3.3-5.1 mmol/L Chloride 104 96-108 mmol/L Carbon Dioxide 23 22-29 mmol/L Anion Gap 16 12-20 Blood Urea Nitrogen 14 9-16 mg/dL Creatinine 0.89 0.5-1.4 mg/dL Estimated Glomerular Filt Rate > 60 Chronic Kidney Disease: Estimated GFR < 60 mL/min/1.73m2 Severe Kidney Disease: Estimated GFR < 15 mL/min/1.73m2 Glucose Fasting 103 60-99 mg/dL A fasting glucose from 100-125 mg/dl is considered impaired (pre-diabetes). Calcium 10.0 8.4-10.2 mg/dL Bilirubin Total 0.6 0.0-1.0 mg/dL Aspartate Amino Transferase 28 5-31 U/L Alanine Aminotransferase 42 0-31 U/L Total Protein 8.7 6.5-8.0 g/dL Albumin Level 4.6 3.5-5.0 g/dL Alkaline Phosphatase 88 39-117 U/L Lipid Panel Reviewed date:07/09/2024 12:37:51 PM Interpretation: Performing Lab:[facility], [address] [place] [phone] Notes/Report: Triglycerides 107 <150 mg/dL Desirable Triglyceride: less than 150 mg/dL Borderline High Triglyceride 150-199 mg/dL High Triglyceride: 200-499 mg/dL Very High Triglyceride: greater than or equal to 5OO mg/dL Cholesterol 186 <200 mg/dL Desirable Cholesterol: less than 200 mg/dL Borderline High Cholesterol: 200-239 mg/dL High Cholesterol: greater than 239 mg/dL LDL Cholesterol Calculated 105 <100 mg/dL Desirable LDL: less than 100 mg/dL Near Optimal/Above Optimal LDL: 110-129 mg/dL Borderline High LDL: 130-159 mg/dL High LDL: 160-189 mg/dL Very High LDL: greater than or equal to 190 mg/dL HDL Cholesterol 60 >40 mg/dL Desirable HDL: greater than 40 mg/dL Note: This HDL assay may give artificially low results in patients with liver disease. UA ClnCatch+Micro w/rflx Cul t Reviewed date:07/09/2024 12:38:19 PM Interpretation: Performing Lab:[facility], [address] [place] [phone] Notes/Report: Urine, Clean Catch Color Urine Yellow Appearance Urine Clear PH 6.0 5.0-9.0 Glucose Urine UA Negative Negative mg/dL Urine Blood Trace Negative Specific [place] - Urine 1.020 1.005-1.025 Urine Protein Negative Neg-Trace mg/dL Urine Ketones Negative Negative mg/dL Nitrite Urine Negative Negative Leukocyte Esterase Urine Negative Negative RBC Urine 0-2 0-2 /HPF WBC Urine 0-5 0-5 /HPF Squamous Epithelial Cell Urine 3-5 0-2 /HPF Bacteria Urine Trace None Seen Hyaline Casts Urine 3-5 0-2 /LPF REASON FOR VISIT FASTING LABS Encounters Encounter Location Date Provider Diagnosis Adrien Lovelace MD [address] [place] [address] Drive [address] [place], [place] [phone] 07/09/2024 Adrien Lovelace Annual physical exam Z00.00 ; Essential hypertension I10 and Hematuria R31.9 Assessments Encounter Date Diagnosis (ICD Code) Assessment Notes Treatment Notes Treatment Clinical Notes Section Notes 07/09/2024 Annual physical exam (ICD-10 - Z00.00) 07/09/2024 Essential hypertension (ICD-10 - I10) 07/09/2024 Hematuria (ICD-10 - R31.9) Plan Of Treatment Next Appt Details Provider Name:Adrien Welch ier, 04/29/2025 08:15:00 AM, [address], [address], [place], [place], [phone], Provider Name:Adrien Welch ier, 07/18/2025 07:15:00 AM, [address], [address], [place], [place], [phone], Provider Name:Adrien Welch ier, 07/25/2025 08:00:00 AM, [address], [address], [place], [place], [phone], Progress Notes * Fabiola ALEXANDERDOB:0 1975 (49 yo F)Acc No.[id number]:07/09/2024 Progress Note Patient: Fabiola ALCANTAR Provider: Hilaria Lovelace MD :1975 A ge:48 Y S ex:Female Date:07/09/2024 Address:[address] [place], [place] [phone] Subjective: * Chief Complaints: * 1 . FASTING LABS. * Medical History: Objective: * Vitals: Assessment: * Assessment: 1. A nnual physical exam - Z00.00 (Primary) 2 . E ssential hypertension - I10 3 . H ematuria - R31.9 Plan: * Treatment: 2. E ssential hypertension L AB: Complete Blood Count Auto Diff (Collection Date & Time - 07/09/2024 07:00 AM) L AB: Comprehensive [place]. Panel Fast (Collection Date & Time - 07/09/2024 07:00 AM) L AB: Lipid Panel (Collection Date & Time - 07/09/2024 07:00 AM) L AB: UA ClnCatch+Micro w/rflx Cult (Collection Date & Time - 07/09/2024 07:00 AM) 3. H ematuria L AB: Complete Blood Count Auto Diff (Collection Date & Time - 07/09/2024 07:00 AM) L AB: Comprehensive [place]. Panel Fast (Collection Date & Time - 07/09/2024 07:00 AM) L AB: Lipid Panel (Collection Date & Time - 07/09/2024 07:00 AM) L AB: UA ClnCatch+Micro w/rflx Cult (Collection Date & Time - 07/09/2024 07:00 AM) * Procedure Codes: 3 6415 VENIPUNCT, ROUTINE* * * The named appointment provid er may or may not be the originator of this progress note, and it is not deemed complete until electronically signed by the appointment provider. Sign off status: Pending * Provider: Hilaria Lovelace MD Date: 0 07/09/2024 Generated for Christelle robles/Radha/Saw on: 1 05/25/2024 08:25 AM EST
--- OUTSIDE RECORDS SUMMARY | 2024-07-19 04:30 | XMS_ITS ---
Author Organization Adrien Lovelace MD Address [address] [place], [place] [id number] Care Team Providers Care Esthetician Name Role Phone Adrien Lovelace Primary Care Provider [phone] Allergies Allergen (clinical drug ingredient) Drug/Non Drug Allergy documented on EMR Reaction Allergy Type Onset Date Status amoxicillin / clavulanate Augmentin rash Drug Allergy Active azithromycin Z-Pack (uncoded) rash Allergy Active Reason For Referral Reason please eval hearing loss for a hearing test Diagnosis 1 Hearing loss (H91.90 ) Referral Organization Adrien Lovelace MD Referring Provider First Name Adrien Referring Provider Last Name [place] Referring Provider Speciality Internal edicine Referred Provider [facility], [facility] Referred Provider Specialty Audiologists General Notes Marisol Kumar 0 07/19/2024 10:07:57 AM >order faxed, Marisol Kumar 07/25/2024 02:59:30 PM >referral info mailed Referral Priority Routine Referral Appointment Date 08/07/2024 Reason needs a sleep study Diagnosis 1 CLOTILDE (obstructive sle ep apnea) (G47.33) Referral Organization Adrien Lovelace MD Referring Provider First Name Adrien Referring Provider Last Name [place] Referring Provider Speciality Internal edicine Referred Provider MIGUE MALDONADO Referred Provider Specialty Sleep Medici ne General Notes Kalie Kumarette 0 07/19/2024 10:09:35 AM >info faxed, Marisol Kumar 07/26/2024 02:34:09 PM >referral info mailed to patient Referral Priority Routine Referral Appointment Date 12/12/2024 REASON FOR VISIT ANNUAL EXAM Medications Medication SIG (Take, Route, Frequency, Duration) Notes Start Date End Date Status Albuterol Sulfate HFA 108 (90 Base) MCG/ACT 1 puff as needed Inhalation every 4 hrs as needed for 30 days 07/13/2023 Not-Taking valACYclovir HCl 1 GM take 2 tablets twi ce a day orally x1 day Orally twice a day for 7 days Active Omeprazole 20 MG 1 capsule 30 minutes before morning meal Orally Once a day for 30 day(s) Active Mirena 20 MCG/24HR as directed Intrauterine Active Valsartan-hydroCHLOROthia zide 160-12.5 MG 1 tablet Orally Once a day for 30 days 07/19/2024 Active Betamethasone Dipropionate Aug 0.05 % 1 application Externally Once a day for 14 days 08/23/2022 Not-Taking Hydrocortisone Acetate 1 % 1 application Externally Once a day for 14 days 06/03/2019 Not-Taking Social History Tobacco Use: Social History Observation Description Date Details (start date - stop date) Former Smoker NA - NA Tobacco Use/Smoking Question Answer Notes Patient is a former smoker How long has it been since y ou last smoked? 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 Vital Signs Blood pressure systolic 118 mm Hg 07/19/19 25 Blood pressure diastolic 70 mm Hg 025 Height 68 in 07/19/2024 Weight 260 lbs 07/19/2024 BMI 39.53 kg/m2 07/19/2024 weight is jup 3 pounds since 03-18-24 Encounters Encounter Location Date Provider Diagnosis Adrien Lovelace MD [address] [place] [address] Drive [address] [place] [phone] 07/19/2024 Adrien Lovelace Hearing loss H91.90 ; Annual physical exam Z00.00 ; CLOTILDE (obstructive sleep apnea) G47.33 ; ROMÁN inhibitor intolerance Z78.9 ; Essential hypertension I10 ; Schatzki's ring K22.2 and Depression screening Z13.31 Assessments Encounter Date Diagnosis (ICD Code) Assessment Notes Treatment Notes Treatment Clinical Notes Section Notes 07/19/2024 Hearing loss (ICD-10 - H91.90) send for hearing evaluation 07/19/2024 Annual physical exam (ICD-10 - Z00.00) Labs reviewed and discussed with patient 07/19/2024 CLOTILDE (obstructive sleep apnea) (ICD-10 - G47.33) send for sleep study 07/19/2024 ROMÁN inhibitor intolerance (ICD-10 - Z78.9) 07/19/2024 Essential hypertension (ICD-10 - I10) 07/19/2024 Schatzki's ring (ICD-10 - K22.2) 07/19/2024 Depression screening (ICD-10 - Z13.31) Plan Of Treatment Medication Medication Name Sig Start Date Stop Date Notes Valsartan-hydroCHLOROthiazid e 160-12.5 MG 1 tablet Orally Once a day for 30 days 07/19/2024 Lisinopril-hydroCHLOROthiazi de 10-12.5 MG TAKE 1 TABLET BY MOUTH EVERY DAY FOR 30 DAYS Treatment Notes Assessment Notes Hearing loss send for hearing nubia luation CLOTILDE (obstructive sleep apnea) send for s leep study Referrals Referral Date Details 07/19/2024 07/19/2024, please e joey hearing loss for a hearing test, [facility] 07/19/2024 07/19/2024, needs a sleep study, MIGUE MALDONADO Next Appt Details Follow Up: 2 Months, Reason: Provider Name:Adrien Welch ier, 04/29/2025 08:15:00 AM, [address], [address], [place], [place], [phone], Provider Name:Adrien Welch ier, 07/18/2025 07:15:00 AM, [address], [address], [place], [place], [id number], Provider Name:Adrien Welch ier, 07/25/2025 08:00:00 AM, [address], [address], [place], [id number], Progress Notes * Fabiola ALEXANDERDOB:0 1975 (48 yo F)Acc No.[id number]:07/19/2024 Progress Notes Patient: Fabiola ALCANTAR Provider: Hilaria Lovelace MD :1975 A ge:48 Y S ex:Female Date:07/19/2024 Address:[address] [place], [place] [id number] Subjective: * Chief Complaints: * A NNUAL EXAM * HPI: D epression Screening: PHQ-9 L ittle interest or pleasure in doing things N ot at all, F eeling down, depressed, or hopeless N ot at all, T rouble falling or staying asleep, or sleeping too much N ot at all, F eeling tired or having little energy N ot at all, P oor appetite or overeating N ot at all, F eeling bad about yourself or that you are a failure, or have let yourself or your family down N ot at all, T rouble concentrating on things, such as reading the newspaper or watching television N ot at all, M oving or speaking so slowly that other people could have noticed; or the opposite, being so fidgety or restless that you have been moving around a lot more than usual N ot at all, T houghts that you would be better off or of hurting yourself in some way N ot at all, T otal Score 0 . I nterpretation and Intervention D epression Screening Findings N egative, F ollow-Up for Depression : review of PHQ-9 found negative result, no follow-up needed. C ommunication Needs: Communication Needs D oes the patient have a hearing impairment N o, D oes the patient have a vision impairment? Y es, I f yes, what is the vision impairment? G lasses, D oes the patient have a cognition impairment? N o. S BEKAH Questions: SDOH Questions I n the past year have you been worried about losing housing? N o, I n the past year have you or any family members you live with been unable to get any of the following when it was really needed? Check all that apply: N one. S ymptom(s): patient is a 48 yo fmale here for annual visit with review of recent labs and follow up of chronic issues. * ROS: G eneral/Constitutional: Change in appetite d enies. C hills d enies. F ever d enies. O phthalmologic: Blurred vision d enies. D ischarge d enies. P ain d enies. E NT: Decreased hearing d enies. S ore throat d enies.?Swollen glands d enies. E ndocrine: Cold intolerance d enies. E xcessive thirst d enies. H eat intolerance d enies. W eight loss d enies. R espiratory: Cough a dmits. S hortness of breath at rest d enies. S hortness of breath with exertion d enies.?Wheezing d enies. C ardiovascular: Chest pain at rest d enies. C hest pain with exertion?denies. I rregular heartbeat d enies. S hortness of breath d enies. ? G astrointestinal: Abdominal pain d enies. C hange in bowel habits d enies. D iarrhea d enies. N ausea d enies. R ectal bleeding d enies. V omiting d enies . G enitourinary: Blood in urine d enies. D ifficulty urinating d enies. F requent urination d enies. U rinary incontinence D enies. M usculoskeletal: Patient complaining of l egs hurt when in recliner/ when she sits up is better. when she gets in bed comes on and gets up and walks around. snores a lot. P ainful joints d enies. W eakness d enies. S kin: Dry skin d enies. I tching d enies. D enies?Mole(s), changes in moles, new moles or any lesions of concern. D enies P hotosensitivity. R irais d enies. N eurologic: Dizziness d enies. F ainting d enies. H eadache?denies. * Medical History: * Surgical History: * Hospitalization/Major Diagno stic Procedure: * Family History: F ather: alive 73 yrs, hypertension. M other: alive 71 yrs. 1 brother(s) , 2 sister(s) - healthy. 1 son(s) , 1 daughter(s) - healthy. . Denies mental health/substance abuse family history, No pertinent family medical history, Denies mental health/substance abuse family history. * Social History: T obacco Use: T obacco Use/Smoking P atient is a f ormer smoker, H ow long has it been since you last smoked? > 10 years, A dditional Findings: Tobacco Non-User F ormer smoker, currently using no form of tobacco. D rugs/Alcohol: A lcohol Screen D id you have a drink containing alcohol in the past year? Y es, H ow often did you have a drink containing alcohol in the past year? M onthly or less (1 point), H ow many drinks did you have on a typical day when you were drinking in the past year? 1 or 2 drinks (0 point), H ow often did you have 6 or more drinks on one occasion in the past year? N ever (0 point), P oints 1 , I nterpretation N egative. M iscellaneous: C affeine: no. Children: yes. Community involvements: no. Exercise: no. Home smoke detector use: yes. Housing: owning. Living with: spouse, family. Marital status: . Occupation: works full-time. Travel outside of the [place]: no. * Medications: T akingOmeprazole 20 MG Capsule Delayed Release 1 capsule 30 minutes before morning meal Orally Once a day Mirena 20 MCG/24HR Intrauterine Device as directed Intrauterine Lisinopril-hydroCHLOROthiazide 10-12.5 MG Tablet TAKE 1 TABLET BY MOUTH EVERY DAY FOR 30 DAYS valACYclovir HCl 1 GM Tablet take 2 tablets twice a day orally x1 day Orally twice a day Taking Omeprazole 20 MG Capsule Delayed Release 1 capsule 30 minutes before morning meal Orally Once a day Taking Mirena 20 MCG/24HR Intrauterine Device as directed Intrauterine Taking Lisinopril- hydroCHLOROthiazide 10-12.5 MG Tablet TAKE 1 TABLET BY MOUTH EVERY DAY FOR 30 DAYS Taking valACYclovir HCl 1 GM Tablet take 2 tablets twice a day orally x1 day Orally twice a day Not-Taking/PRNAlbuterol Sulfate HFA 108 (90 Base) MCG/ACT Aerosol Solution 1 puff as needed Inhalation every 4 hrs as needed Betamethasone Dipropionate Aug 0.05 % Gel 1 application Externally Once a day Hydrocortisone Acetate 1 % Cream 1 application Externally Once a day Medication List reviewed and reconciled with the patientNot-Taking/PRN Albuterol Sulfate HFA 108 (90 Base) MCG/ACT Aerosol Solution 1 puff as needed Inhalation every 4 hrs as needed Not-Taking/PRN Betamethasone Dipropionate Aug 0.05 % Gel 1 application Externally Once a day Not-Taking/PRN Hydrocortisone Acetate 1 % Cream 1 application Externally Once a day Medication List reviewed and reconciled with the patient * Allergies: Z -Pack: Jaqui rangel[Allergies Verified] Objective: * Vitals: H t: 68, Wt: 260, BMI:39.53, BP:118/70, Wt-k.94. weight is jup 3 pounds since 03-18-24. * P ast Orders: L ab:Lipid Panel (Order Date - 07/09/2024) (Collection Date & Time - 07/09/2024 07:00 AM) Value Reference Range Triglycerides 107 <150 - mg/dL Cholesterol 186 <200 - mg/dL LDL Cholesterol Calculated 105 H <100 - mg/dL HDL Cholesterol 60 >40 - mg/dL L ab:Complete Blood Count Auto Diff (Order Date - 07/09/2024) (Collection Date & Time - 07/09/2024 07:00 AM) Value Reference Range White Blood Count 9.2 4.8-10.8 - X10*3/uL Red Blood Count 4.95 4.20-5.50 - X10*6/uL Hemoglobin 14.6 12.0-16.0 - g/dl Hematocrit 43.9 37.0-47.0 - % Mean Corpuscular Volume 88.7 80.0-98.0 - fL Mean Corpuscular Hemoglobin 29.5 27.0-33.0 - pg Mean Corpuscular HGB Conc 33.3 31.0-35.0 - g/ dl Red Cell Distribution Width 12.5 11.0-16.0 - % Platelet Count 334 160-400 - X10*3/uL Mean Platelet Volume 10.6 9.4-12.3 - fL Neutrophils Percent Auto 63.1 45-73 - % Imm Gran Pct Auto 0.5 H 0.0-0.4 - % Lymphocytes Percent Auto 22.7 20-40 - % Monocytes Percent Auto 9.3 2-11 - % Eosinophils Percent Auto 3.7 0-4 - % Basophils Percent Auto 0.7 0-2 - % NRBC Pct Auto 0.0 0.0-0.2 - /100WBC Neutrophils Absolute Auto 5.8 2.0-8.3 - x10* 3/uL Imm Gran Abs Auto 0.05 H 0.00-0.03 - X10*3/uL Lymphocytes Absolute Auto 2.1 1.2-4.9 - X10* 3/uL Monocytes Absolute Auto 0.9 0.1-1.2 - X10*3/ uL Eosinophils Absolute Auto 0.3 0.0-0.4 - X10* 3/uL Basophils Absolute Auto 0.1 0.0-0.2 - X10*3/ uL NRBC Abs Auto 0.000 0.0-0.012 - X10*3/uL L ab:Comprehensive [place]. Panel Fast (Order Date - 07/09/2024) (Collection Date & Time - 07/09/2024 07:00 AM) Value Reference Range Sodium 139 135-145 - mmol/L Bilirubin Total 0.6 0.0-1.0 - mg/dL Aspartate Amino Transferase 28 5-31 - U/L Alanine Aminotransferase 42 H 0-31 - U/L Total Protein 8.7 H 6.5-8.0 - g/dL Albumin Level 4.6 3.5-5.0 - g/dL Alkaline Phosphatase 88 39-117 - U/L Potassium 4.1 3.3-5.1 - mmol/L Chloride 104 96-108 - mmol/L Carbon Dioxide 23 22-29 - mmol/L Anion Gap 16 12-20 - Blood Urea Nitrogen 14 9-16 - mg/dL Creatinine 0.89 0.5-1.4 - mg/dL Estimated Glomerular Filt Rate > 60 - Glucose Fasting 103 H 60-99 - mg/dL Calcium 10.0 8.4-10.2 - mg/dL L ab:UA ClnCatch+Micro w/rflx Cult (Order Date - 07/09/2024) (Collection Date & Time - 07/09/2024 07:00 AM) Value Reference Range Color Urine Yellow - Appearance Urine Clear - PH 6.0 5.0-9.0 - Glucose Urine UA Negative Negative - mg/dL Urine Blood Trace Negative - Specific [place] - Urine 1.020 1.005-1.025 - Urine Protein Negative Neg-Trace - mg/dL Urine Ketones Negative Negative - mg/dL Nitrite Urine Negative Negative - Leukocyte Esterase Urine Negative Negative - RBC Urine 0-2 0-2 - /HPF WBC Urine 0-5 0-5 - /HPF Squamous Epithelial Cell Urine 3-5 0-2 - /HP F Bacteria Urine Trace None Seen - Hyaline Casts Urine 3-5 0-2 - /LPF * Examination: G eneral Examination: GENERAL APPEARANCE: w ell developed, well nourished, in no acute distress. HEAD: n ormocephalic, atraumatic. EYES: p upils equal, round, reactive to light and accommodation, sclera non-icteric. EARS: n ormal. ORAL CAVITY: m [place] moist. THROAT: c lear. NECK/THYROID: n santa supple, full range of motion, no cervical lymphadenopathy, no bruits. SKIN: w arm and dry, no suspicious lesions. HEART: r egular rate and rhythm, S1, S2 normal, no murmurs.? LUNGS: c lear to auscultation bilaterally. BREASTS: d one by layout designer. ABDOMEN: s oft, nontender, nondistended, bowel sounds present, normal, no organomegaly , no masses palpable. RECTAL EXAM: d one by layout designer. FEMALE GENITOURINARY: d one by layout designer. EXTREMITIES: n o clubbing, cyanosis, or edema. NEUROLOGIC: n onfocal, motor strength normal upper and lower extremities, sensory exam intact. Assessment: * Assessment: 1. A nnual physical exam - Z00.00 (Primary) 2 . H earing loss - H91.90 3 . O SA (obstructive sleep apnea) - G47.33 4 . A CE inhibitor intolerance - Z78.9 5 . E ssential hypertension - I10 6 . S chatzki's ring - K22.2 7 . D epression screening - Z13.31 Plan: * Treatment: 2. H earing loss Stop Lisinopril-hydroCHLOROthiazide Tablet, 10-12.5 MG, TAKE 1 TABLET BY MOUTH EVERY DAY FOR 30 DAYS. Notes: send for hearing evaluation Referral To:[facility] SPEECH AND HEARING Audiologists Reason:please eval hearing loss for a hearing test 3. O SA (obstructive sleep apnea) Notes: send for sleep study Referral To:[facility] MALDONADO Sleep Medicine Reason:needs a sleep study 4. A CE inhibitor intolerance Start Valsartan-hydroCHLOROthiazide Tablet, 160-12.5 MG, 1 tablet, Orally, Once a day, 30 days, 30, Refills 11. * Procedure Codes: * Follow Up: 2 Months * * Sign off status: Completed true * Provider: Hilaria Lovelace MD Date: 0 07/19/2024 Generated for Christelle robles/Radha/Eleanoritting on: 1 05/25/2024 08:25 AM EST History and Physical Notes * HPI (History of Present Illness) Category Sub-Category Detail Notes Category Not es Symptom(s) patient is a 48 yo fmale here for annual visit with review of recent labs and follow up of chronic issues. Depression Screening PHQ-9 Little inte rest or pleasure in doing things: Not at all Feeling down, depressed, or hopeless: No t at all Trouble falling or staying asleep, or sl eeping too much: Not at all Feeling tired or having little energy: N ot at all Poor appetite or overeating: Not at all Feeling bad about yourself o r that you are a failure, or have let yourself or your family down: Not at all Trouble concentrating on thi ngs, such as reading the newspaper or watching television: Not at all Moving or speaking so slowly that other people could have noticed; or the opposite, being so fidgety or restless that you have been moving around a lot more than usual: Not at all Thoughts that you would be b adriana off or of hurting yourself in some way: Not at all Total Score: 0 Interpretation and Intervention Depression Tamanna serna Findings: Negative Follow-Up for Depression: : review of PH Q-9 found negative result, no follow-up needed SDOH Questions SDOH Questions In the past year have you been worried about losing housing?: No In the past year have you or any family members you live with been unable to get any of the following when it was really needed? Check all that apply:: None Communication Needs Communication Needs Does the patient have a hearing impairment: No Does the patient have a vision impairmen t?: Yes If yes, what is the vision impairment?: Glasses Does the patient have a cognition impair ment?: No Examination Category Sub-Category Detail Notes Category Not es General Examination GENERAL APPEARANCE: well dev eloped, well nourished, in no acute distress HEAD: normocephalic, atrau matic EYES: pupils equal, round, reactive to light and accommodation, sclera non-icteric EARS: normal THROAT: clear NECK/THYROID: neck supple, full ra nge of motion, no cervical lymphadenopathy, no bruits HEART: regular rate and rhy thm, S1, S2 normal, no murmurs LUNGS: clear to auscultatio n bilaterally ABDOMEN: soft, nontender, non distended, bowel sounds present, normal, no organomegaly , no masses palpable NEUROLOGIC: nonfocal, motor stre ngth normal upper and lower extremities, sensory exam intact SKIN: warm and dry, no velma picious lesions EXTREMITIES: no clubbing, cyanosi s, or edema BREASTS: done by layout designer RECTAL EXAM: done by layout designer FEMALE GENITOURINARY: done by layout designer ORAL CAVITY: mucosa moist Consultation Request Notes Referral Date Referring Provider Referred Provider Not es 07/19/2024 Adrien Lovelace [facility]CH [facility] HEAR[facility], [facility] please eval hearing loss for a hearing test 07/19/2024 Adrien Lovelace PAUL needs a [facility] study
--- OUTSIDE RECORDS SUMMARY | 2024-10-17 02:45 | XMS_ITS ---
Author Organization Adrien Lovelace MD Address [address] [place], [place] [id number] Care Team Providers Care Miter Operator Name Role Phone Adrien Lovelace Primary Care Provider [phone] Allergies Allergen (clinical drug ingredient) Drug/Non Drug Allergy documented on EMR Reaction Allergy Type Onset Date Status angiotensin-converting enzyme inhibitor (FN) ROMÁN Inhibitors cough Drug Allergy Acti ve amoxicillin / clavulanate Augmentin rash Drug Allergy Active azithromycin Z-Pack (uncoded) rash Allergy Active REASON FOR VISIT 2 month, check rash under breasts Medications Medication SIG (Take, Route, Frequency, Duration) Notes Start Date End Date Status Betamethasone Dipropionate Aug 0.05 % 1 application Externally Once a day for 14 days 08/23/2022 Not-Taking valACYclovir HCl 1 GM take 2 tablets twi ce a day orally x1 day Orally twice a day for 7 days Active Mirena 20 MCG/24HR as directed Intrauterine Active Albuterol Sulfate HFA 108 (90 Base) MCG/ACT 1 puff as needed Inhalation every 4 hrs as needed for 30 days 07/13/2023 Not-Taking Omeprazole 20 MG 1 capsule 30 minutes before morning meal Orally Once a day for 30 day(s) Active Hydrocortisone Acetate 1 % 1 application Externally Once a day for 14 days 06/03/2019 Not-Taking Nystatin 964789 UNIT/GM 1 application Externally Twice a day for 14 days 10/17/2024 Active Valsartan-hydroCHLOROthia zide 320-25 MG 1 tablet Orally Once a day for 30 days 10/17/2024 Active Vital Signs Blood pressure systolic 142 mm Hg 10/18/19 25 Blood pressure diastolic 90 mm Hg 025 Height 68 in 10/17/2024 Weight 268 lbs 10/17/2024 BMI 40.74 kg/m2 10/17/2024 weight is up 8 pounds since 07-19-24 Encounters Encounter Location Date Provider Diagnosis Adrien Lovelace MD [address] [place] [phone] 10/17/2024 Adrien Lovelace Essential hypertension I10 and Yeast infection B37.9 Assessments Encounter Date Diagnosis (ICD Code) Assessment Notes Treatment Notes Treatment Clinical Notes Section Notes 10/17/2024 Essential hypertension (ICD-10 - I10) patient verbalized understanding of change in medication dose 10/17/2024 Yeast infection (ICD-10 - B37.9) patient verbalized understanding of medication and directions for use Plan Of Treatment Medication Medication Name Sig Start Date Stop Date Notes Valsartan-hydroCHLOROthiazid e 160-12.5 MG 1 tablet Orally Once a day 07/19/2024 Nystatin 601330 UNIT/GM 1 application Ex ternally Twice a day for 14 days 10/17/2024 Valsartan-hydroCHLOROthiazid e 320-25 MG 1 tablet Orally Once a day for 30 days 10/17/2024 Treatment Notes Assessment Notes Essential hypertension patient verbalize d understanding of change in medication dose Yeast infection patient verbalized u nderstanding of medication and directions for use Next Appt Details Follow Up: 4 Weeks, Reason: Provider Name:Adrien kraus, 04/29/2025 08:15:00 AM, [address] [place] [address], [place] [address], [place], [place], [phone], Provider Name:Adrien kraus, 07/18/2025 07:15:00 AM, [address] [place] [address], [address], [phone], Provider Name:Adrien kraus, 07/25/2025 08:00:00 AM, [address], [address], [place], [place], [phone], Progress Notes * Fabiola ALEXANDERDOB:0 1975 (49 yo F)Acc No.[id number]:10/17/2024 Progress Notes Patient: Fabiola ALCANTAR Provider: Hilaria Lovelace MD :1975 A ge:49 Y S ex:Female Date:10/17/2024 Address:[address] [place], [place] [id number] Subjective: * Chief Complaints: * 2 monthCheck rash under breasts * HPI: S ymptom(s): patient is a 49 yo female here for 2 month follow up visit. * ROS: G eneral/Constitutional: Denies C hills. D enies F atigue. D enies F ever. D enies H eadache. E NT: Denies S ore throat. R espiratory: Denies C ough. D enies S hortness of breath at rest. D enies S hortness of breath with exertion. C ardiovascular: Denies C hest pain at rest. D enies C hest pain with exertion. D enies D izziness. D enies P alpitations. D enies S hortness of breath. G astrointestinal: Denies D iarrhea. D enies N ausea. * Medical History: * Surgical History: * Hospitalization/Major Diagno stic Procedure: * Medications: T akingOmeprazole 20 MG Capsule Delayed Release 1 capsule 30 minutes before morning meal Orally Once a day Mirena 20 MCG/24HR Intrauterine Device as directed Intrauterine valACYclovir HCl 1 GM Tablet take 2 tablets twice a day orally x1 day Orally twice a day Valsartan-hydroCHLOROthiazide 160-12.5 MG Tablet 1 tablet Orally Once a day Taking Omeprazole 20 MG Capsule Delayed Release 1 capsule 30 minutes before morning meal Orally Once a day Taking Mirena 20 MCG/24HR Intrauterine Device as directed Intrauterine Taking valACYclovir HCl 1 GM Tablet take 2 tablets twice a day orally x1 day Orally twice a day Taking Valsartan-hydroCHLOROthiazide 160- 12.5 MG Tablet 1 tablet Orally Once a day Not-Taking/PRNAlbuterol Sulfate HFA 108 (90 [...] with the patient * Allergies: Z -Pack: rashAugmentin: rashACE Inhibitors: cough Objective: * Vitals: H t: 68, Wt: 268, BMI:40.74, BP:142/90, Repeat BP:140/98, Wt-k.56. weight is up 8 pounds since 07-19-24. * Examination: G eneral Examination: GENERAL APPEARANCE: a lert, well hydrated, in no distress.? HEAD: n ormocephalic. SKIN: a bnormal with rash below breasts. HEART: n o murmurs, rubs, gallops, regular rate and rhythm.? LUNGS: n o wheezes, rales, rhonchi, good air movement, clear to auscultation bilaterally. Assessment: * Assessment: 1. E ssential hypertension - I10 (Primary) 2 . Y east infection - B37.9? Plan: * Treatment: 2. Y east infection Start Nystatin Cream, 413068 UNIT/GM, 1 application, Externally, Twice a day, 14 days, 60, Refills 3. Notes: patient verbalized understanding of medication and directions for use * Procedure Codes: * Follow Up: 4 Weeks * * Sign off status: Completed true * Provider: Hilaria Lovelace MD Date: 0 10/17/2024 Generated for Christelle robles/Radha/Eleanoritting on: 05/25/2024 08:23 AM EST History and Physical Notes * HPI (History of Present Illness) Category Sub-Category Detail Notes Category Not es Symptom(s) patient is a 49 yo female here for 2 month follow up visit Examination Category Sub-Category Detail Notes Category Not es General Examination GENERAL APPEARANCE: alert, w ell hydrated, in no distress HEAD: normocephalic HEART: no murmurs, rubs, ga llops, regular rate and rhythm LUNGS: no wheezes, rales, r honchi, good air movement, clear to auscultation bilaterally SKIN: abnormal with rash b elow breasts
--- OUTSIDE RECORDS SUMMARY | 2024-11-14 06:45 | XMS_ITS ---
Author Organization Adrien Lovelace MD Address [address] [place], [place] [id number] Care Team Providers Care Bandoleer Packer Name Role Phone Adrien Lovelace Primary Care Provider Allergies Allergen (clinical drug ingredient) Drug/Non Drug Allergy documented on EMR Reaction Allergy Type Onset Date Status angiotensin-converting enzyme inhibitor (FN) ROMÁN Inhibitors cough Drug Allergy Acti ve amoxicillin / clavulanate Augmentin rash Drug Allergy Active azithromycin Z-Pack (uncoded) rash Allergy Active REASON FOR VISIT 4 week f/u Medications Medication SIG (Take, Route, Frequency, Duration) Notes Start Date End Date Status Mirena 20 MCG/24HR as directed Intrauterine Active valACYclovir HCl 1 GM take 2 tablets twi ce a day orally x1 day Orally twice a day for 7 days Active Hydrocortisone Acetate 1 % 1 application Externally Once a day for 14 days 06/03/2019 Not-Taking Omeprazole 20 MG 1 capsule 30 minutes before morning meal Orally Once a day for 30 day(s) Active Valsartan-hydroCHLOROthia zide 320-25 MG 1 tablet Orally Once a day 10/17/2024 Active Nystatin 543645 UNIT/GM 1 application Externally Twice a day for 14 days 10/17/2024 Active Albuterol Sulfate HFA 108 (90 Base) MCG/ACT 1 puff as needed Inhalation every 4 hrs as needed for 30 days 07/13/2023 Not-Taking Betamethasone Dipropionate Aug 0.05 % 1 application Externally Once a day for 14 days 08/23/2022 Not-Taking Problems Problem Type SNOMED Code ICD Code Onset Dates Problem Status W/U Status Risk Notes Problem Ventricular premature complex (disorder) (384179462) PVC (premature ventricular contraction) (I49.3) Active confirmed Vital Signs Blood pressure systolic 120 mm Hg 11/15/19 25 Blood pressure diastolic 78 mm Hg 025 Height 68 in 11/14/2024 Weight 260 lbs 11/14/2024 BMI 39.53 kg/m2 11/14/2024 weight is down 8 [facility] 10-17-24 Encounters Encounter Location Date Provider Diagnosis Adrien Lovelace MD [address] [place] [address] [place] [phone] 11/14/2024 Adrien Lovelace Essential hypertension I10 ; Weight loss R63.4 and PVC (premature ventricular contraction) I49.3 Assessments Encounter Date Diagnosis (ICD Code) Assessment Notes Treatment Notes Treatment Clinical Notes Section Notes 11/14/2024 Essential hypertension (ICD-10 - I10) doing well on meds, will continue current regiment 11/14/2024 Weight loss (ICD-10 - R63.4) is cutting back and is doing great 11/14/2024 PVC (premature ventricular contraction) (ICD-10 - I49.3) reassurance. no need to treat Plan Of Treatment Medication Medication Name Sig Start Date Stop Date Notes Valsartan-hydroCHLOROthiazid e 320-25 MG 1 tablet Orally Once a day 10/17/2024 Treatment Notes Assessment Notes Essential hypertension doing well on med s, will continue current regiment Weight loss is cutting back and is doing great PVC (premature ventricular contraction) reassurance. no need to treat Next Appt Details Follow Up: 6 Months, Reason: Provider Name:Adrien kraus, 04/29/2025 08:15:00 AM, [address] [place] [address], Suite [facility], [place], [place], [phone], Provider Name:Adrien kraus, 07/18/2025 07:15:00 AM, [address], [address], [place], [phone], Provider Name:Adrien Welch ier, 07/25/2025 08:00:00 AM, [address], [address], [place], [phone], Progress Notes * Fabiola ALEXANDERDOB:0 1975 (49 yo F)Acc No.[id number]:11/14/2024 Progress Notes Patient: Fabiola ALCANTAR Provider: Hilaria Lovelace MD :1975 A ge:49 Y S ex:Female Date:11/14/2024 Address:[address] [place] [address] [id number] Subjective: * Chief Complaints: * 4 week f/u * HPI: S ymptom(s): patient is a 49 yo female jhere for 4 week follow up visit/ having a flipping sensation in her chest. * ROS: G eneral/Constitutional: Denies C hills. [...] Denies D iarrhea. D enies N ausea. P sychiatric: Admits A nxiety. D enies D epressed mood. D enies D ifficulty sleeping. * Medical History: * Surgical History: * Hospitalization/Major Diagno stic Procedure: * Medications: T akingOmeprazole 20 MG Capsule Delayed Release 1 capsule 30 minutes before morning meal Orally Once a day Mirena 20 MCG/24HR Intrauterine Device as directed Intrauterine valACYclovir HCl 1 GM Tablet take 2 tablets twice a day orally x1 day Orally twice a day Valsartan-hydroCHLOROthiazide 320-25 MG Tablet 1 tablet Orally Once a day Nystatin 873427 UNIT/GM Cream 1 application Externally Twice a day Taking Omeprazole 20 MG Capsule Delayed Release 1 capsule 30 minutes before morning meal Orally Once a day Taking Mirena 20 MCG/24HR Intrauterine Device as directed Intrauterine Taking valACYclovir HCl 1 GM Tablet take 2 tablets twice a day orally x1 day Orally twice a day Taking Valsartan-hydroCHLOROthiazide 320-25 MG Tablet 1 tablet Orally Once a day Taking Nystatin 888521 UNIT/GM Cream 1 application Externally Twice a day Not-Taking/PRNAlbuterol Sulfate HFA 108 (90 [...] * Allergies: Z -Pack: rashAugmentin: rashACE Inhibitors: coughyes[Allergies Verified] Objective: * Vitals: H t: 68, Wt: 260, BMI:39.53, BP:120/78, Wt-k.94. weight is down 8 pounds since 10-17-24. Assessment: * Assessment: 1. E ssential hypertension - I10 (Primary) 2 . W eight loss - R63.4 ? 3 . P VC (premature ventricular contraction) - I49.3 Plan: * Treatment: 2. W eight loss Notes: is cutting back and is doing great 3. P VC (premature ventricular contraction) Notes: reassurance. no need to treat * Procedure Codes: * Follow Up: 6 Months * * Sign off status: Completed true * Provider: Hilaria Lovelace MD Date: 0 11/14/2024 Generated for Christelle robles/Radha/Saw on: 1 05/25/2024 08:23 AM EST History and Physical Notes * HPI (History of Present Illness) Category Sub-Category Detail Notes Category Not es Symptom(s) patient is a 49 yo female jhere for 4 week follow up visit/ having a flipping sensation in her chest.
--- OUTSIDE RECORDS SUMMARY | 2025-03-25 08:24 | XMS_ITS | Patient Health Record ---
Author Organization Adrien Lovelcae MD Address [address] [place] [phone] Care Team Providers Care Auger Operator Name Role Phone Adrien Lovelace Primary [...] ff Reviewed date:07/09/2024 05:00:18 PM Interpretation: Performing Lab:[facility], [address] [place] [phone] Notes/Report: White Blood Count 9.2 4.8-10.8 X10*3/uL [...] NRBC Abs Auto 0.000 0.0-0.012 X10*3/uL Comprehensive [place]. Panel Fa st Reviewed date:07/09/2024 05:01:55 PM Interpretation: Performing Lab:[facility], [address] [place] [phone] Notes/Report: Sodium 139 135-145 mmol/L Potassium 4.1 [...] Panel Reviewed date:07/09/2024 12:37:51 PM Interpretation: Performing Lab:[facility], [address] [place] [phone] Notes/Report: Triglycerides 107 <150 mg/dL Desirable Triglyceride: [...] t Reviewed date:07/09/2024 12:38:19 PM Interpretation: Performing Lab:[facility], [address] [place] [phone] Notes/Report: Urine, Clean Catch Color Urine Yellow Appearance Urine Clear PH 6.0 5.0-9.0 Glucose Urine UA Negative Negative mg/dL Urine Blood Trace Negative Specific [place] - Urine 1.020 1.005-1.025 Urine Protein Negative Neg-Trace mg/dL Urine Ketones Negative Negative mg/dL Nitrite Urine Negative Negative Leukocyte Esterase Urine Negative Negative RBC Urine 0-2 0-2 /HPF WBC Urine 0-5 0-5 /HPF Squamous Epithelial Cell Urine 3-5 0-2 /HPF Bacteria Urine Trace None Seen Hyaline Casts Urine 3-5 0-2 /LPF Reason For Referral Reason please eval hearing loss for a hearing test Diagnosis 1 Hearing loss (H91.90 ) Referral Organization Adrien Lovelace MD Referring Provider First Name Adrien Referring Provider Last Name [place] Referring Provider Speciality Internal M edicine Referred Provider [facility] [place] Provider Specialty Audiologists General Notes Marisol [...] twice a day for 7 days Active Nystatin 643074 UNIT/GM 1 application Externally Twice a day [...] tablet Orally Once a day 10/17/2024 Active Immunizations Vaccine Route Administration Date Status Comme nts DECLINED, FLU Unknown 03/11/2013 Administered Tetanus Unknown 11/30/2013 Administered Given by [facility] Fluarix Quadrivalent IM Intramuscular 03/13/2020 Administe [...] Problem Status W/U Status Risk Notes Problem 08198728 Hematuria (R31.9) Active confirmed Problem Ventricular premature complex (disorder) (127758769) PVC (premature ventricular contraction) (I49.3) Active confirmed Problem 46678135 Anxiety (F41.9) Active confirmed Problem 733433927 Body mass index (BMI) 30.0-30.9, adult (Z68.30) Active confirmed Problem 47312404 Essential hypertension (I10) Active confirmed Problem 186307028 Mild intermittent asthma without complication (J45.20) Active confirmed Problem 57720763 Intrinsic eczema (L20.84) Active confirmed Problem 7431015 Cold sore (B00.1) Active confirmed Problem Schatzki's ring (47475610) Schatzki's ring (K22.2) Active confirmed Problem 667937885 Tension headache (G44.209) Active confirmed Problem 752006660977405 Carpal tunnel syndrome of right wrist (G56.01) Active confirmed Problem Hearing loss (59586298) Hearing loss (H91.90) Active confirmed Problem 251682823 Drug allergy (Z88.9) Active confirmed Problem Angiotensin converting enzyme inhibitor not tolerated (561167011) 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 Problem Obstructive sleep apnea syndrome (74113496) CLOTILDE (obstructive sleep apnea) (G47.33) Active confirmed Problem 109327605 BMI 34.0-34.9,adult (Z68.34) Active confirmed Problem 50912419 Allergic rhinitis due to other allergen (J30.89) Active confirmed Problem 93502030 Menopausal symptoms (N95.1) Active confirmed Vital Signs Blood pressure diastolic 78 mm Hg 11/14/2024 rose ght is down 8 pounds since 10-17-24 Height 68 in 11/14/2024 weight is down 8 pounds since 10-17-24 Blood pressure systolic 120 mm Hg 11/14/2024 weig ht is down 8 pounds since 10-17-24 Weight 260 lbs 11/14/2024 weight is down 8 pounds since 10-17-24 BMI 39.53 kg/m2 11/14/2024 weight is down 8 pounds since 10-17-24 Encounters Encounter Location Date Provider Diagnosis Adrien Lovelace MD [address] [place] [phone] 07/09/2024 Adrien Lovelace Annual physical exam Z00.00 ; Essential hypertension I10 and Hematuria R31.9 Adrien Lovelace MD [address] [place] [id number] 07/19/2024 Adrien Lovelace Hearing loss H91.90 ; Annual physical exam Z00.00 ; CLOTILDE (obstructive sleep apnea) G47.33 ; ROMÁN inhibitor intolerance Z78.9 ; Essential hypertension I10 ; Schatzki's ring K22.2 and Depression screening Z13.31 Adrien Lovelace MD [address] [place] [phone] 10/17/2024 Adrien Lovelace Essential hypertension I10 and Yeast infection B37.9 Adrien Lovelace MD [address] [place] [phone] 11/14/2024 Adrien Lovelace Essential hypertension I10 ; Weight loss R63.4 and PVC (premature ventricular contraction) I49.3 Adrien Lovelace MD [address] [place], [place] [phone] 04/26/2024 Adrien Lovelace Cold sore B00.1 Assessments Encounter Date Diagnosis (ICD Code) Assessment Notes Treatment Notes Treatment Clinical Notes Section Notes 07/09/2024 Annual physical exam (ICD-10 - Z00.00) 07/19/2024 Hearing loss (ICD-10 - H91.90) send for hearing evaluation 07/19/2024 Annual physical exam (ICD-10 - Z00.00) Labs reviewed and discussed with patient 10/17/2024 Essential hypertension (ICD-10 - I10) patient verbalized understanding of change in medication dose 10/17/2024 Yeast infection (ICD-10 - B37.9) patient verbalized understanding of medication and directions for use 11/14/2024 Essential hypertension (ICD-10 - I10) doing well on meds, will continue current regiment 11/14/2024 Weight loss (ICD-10 - R63.4) is cutting back and is doing great 04/26/2024 Cold sore (ICD-10 - B00.1) 07/09/2024 Essential hypertension (ICD-10 - I10) 07/19/2024 CLOTILDE (obstructive sleep apnea) (ICD-10 - G47.33) send for sleep study 11/14/2024 PVC (premature ventricular contraction) (ICD-10 - I49.3) reassurance. no need to treat 07/09/2024 Hematuria (ICD-10 - R31.9) 07/19/2024 ROMÁN inhibitor intolerance (ICD-10 - Z78.9) 07/19/2024 Essential hypertension (ICD-10 - I10) 07/19/2024 Schatzki's ring (ICD-10 - K22.2) 07/19/2024 Depression screening (ICD-10 - Z13.31) Plan Of Treatment Pending Test Test Name Order Date XR CHEST 2 VIEW PA & LAT 07/13/2023 XR chest 2V 07/18/2023 Next Appt Details Provider Name:Adrien kraus, 04/29/2025 08:15:00 AM, [address], [address], [place], [place], [phone], Provider Name:Adrien Welch ier, 07/18/2025 07:15:00 AM, [address], [address], [place], [phone], Provider Name:Adrien Welch ier, 07/25/2025 08:00:00 AM, [address], [address], [place], [phone], Insurance Providers Payer Name Payer Address Payer Phone Subscriber Number Group Number Insured Name Patient Relationship to Insured Coverage Start Date Coverage End Date [facility] [address] [place] [phone] [id number] Fabiola Wang Self - patient is the insured Medical (General) History Medical History History ICD Code 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 Chávez ([facility]) pap, 11/02 depression screening 02/2014 Hematuria had cysto work up Neg findings 05/30/[address] Sawyer colonoscopy 05/06/22 repeat 10 yrs
--- OUTSIDE RECORDS SUMMARY | 2025-03-25 08:25 | XMS_ITS | Patient Health Record ---
Author Organization [facility] Address [address] [place] [phone] Care Team Providers Care Expander Machine Operator Name Role Phone Adrien Lovelace MD Primary Care Provider Zbigniew Pemberton Unavailable [phone] Allergies Allergen (clinical drug ingredient) Drug/Non Drug Allergy documented on EMR Reaction Allergy Type Onset Date Status azithromycin Azithromycin Unknown Drug Allergy A ctive amoxicillin Amoxicillin Unknown Drug Allergy Act madhuri Reason For Referral No Information Medications Medication SIG (Take, Route, Frequency, Duration) Notes Start Date End Date Status Omeprazole 20 MG 1 capsule 1/2 to 1 h our before morning meal Orally Once a day; Duration: 30 days Active Mirena (52 MG) 20 MCG/DAY as directed Intrauterine Active Lisinopril-hydroCHLOROthi azide 10-12.5 MG Oral; Duration: 90 Activ e Immunizations Vaccine Route Administration Date Status Comme [...] Status Risk Notes Problem Colon cancer screening (874682799) Colon cancer screening (Z12.11) Active confirmed Problem Clinton's esophagus (482836149) 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) Active confirmed Problem Diverticular disease of colon (080922714) Diverticulosis of large intestine without perforation or abscess without bleeding (K57.30) Active confirmed Problem Gastroesophageal reflux disease (711332082) Gastroesophageal reflux disease (K21.9) Active confirmed Problem Gastroesophageal reflux disease without esophagitis (189733739) Gastroesophageal reflux disease without esophagitis (K21.9) Active confirmed Problem Hiatal hernia (66602407) Hiatal hernia (K44.9) Active confirmed Problem Gastroesophageal reflux disease (386264755) GERD (gastroesophageal reflux disease) (K21.9) Active confirmed Plan Of Treatment Future Test Test Name Order Date UPPER GI ENDOSCOPY 03/16/2022 COLONOSCOPY 03/16/2022 Insurance Providers Payer Name Payer Address Payer Phone Subscriber Number Group Number Insured Name Patient Relationship to Insured Coverage Start Date Coverage End Date [employer] [address] [place] [phone] [id number] LILLIANA WATTS Self - patient is the insured Medical (General) History Medical History History ICD Code Denies PR,DM,CVA,Lung disease,renal dise ase HTN Negative screening colonoscopy in [facility] er 2021 EGD 04/2022 with a moderate sized hiatal hernia, gastroesophageal reflux, and tiny areas of intestinal metaplasia at the gastroesophageal junction without dysplasia; biopsies were negative for eosinophilic esophagitis Surgical History Surgery Date(Month/Year) Ears 1983 Tonsils 1991
--- NOTE | 2025-03-25 08:26 | AM.OFFWIN_ITS ---
Intake Vital Signs 03/25/25 08:35 Height 5 ft 7 in Weight 260 lb BMI 40.7 BP 152/88 H Blood Pressure Location Rt brachial Position Sitting Pulse 73 Pulse Source Pulse Oximeter Temp 97.9 F Temp Source Oral Pulse Oximetry (%) 98 Oxygen Delivery Method Room Air Intake Visit Reasons: EP-uti, rt side lower back pain Intake Note: Patient presents with c/o right sided low back pain that radiates down into right thigh, but last 3 day it has been much sharper. Patient Tobacco Use Status: Former Tobacco user Allergies amoxicillin Allergy (Verified 03/25/25 08:36) Unknown azithromycin Allergy (Verified 03/25/25 08:36) Unknown Do you need a note to return to daycare/school/sports/work: No HPI HPI Comments History of Present Illness Details History - The patient is a 49-year-old female pr esenting with low back pain. - She reports persistent right-sided low back pain, exacerbated over the weekend, affecting her ability to perform daily activities such as tying her shoe or bending over. - The patient occasionally uses Tylenol or ibuprofen for pain relief but lacks consistency in medication use. - She did admit to doing a lot over the weekend such as decorating, yard work, and house work. - She wanted to make sure she did not hdz ve a UTI. - She denies trauma or fall. - She denies dysuria, hematuria, abd mojgan n, n/v/d. - She denies numbness, tingling, saddle anesthesia, or incontinence. Physical Exam General: cooperative, healthy appearing and comfortable, patient oriented x3 Head: Normal to inspection, normocephalic/atraumatic Effort & Inspection: Normal respiratory effort and able to speak in complete sentences. Cardiac: RRR, no M/R/G noted. Normal S1 and S2. Respiratory: Clear to auscultation bilaterally. No w/r/r noted. Back/spine: No CVA tenderness bilaterally. Cervical, thoracic and lumbar spine normal to inspection. Cervical ROM normal, no midline spinous tenderness noted. Thoracic ROM normal, lumbar ROM normal. No midline vertebral spinous tenderness noted. No step offs noted. No TTP of the thoracic or lumbar paraspinous or paravertebral muscles. TTP of the right SI joint. DTR are 2+ on the lower extremities noted. Ambulates with a steady gait. Extremities: Straight leg raise test positive on right; Straight leg raise test negative on left; motor strength normal 5/5 bilaterally. Neuro: Sensation intact. Patient was informed and verbally consented to the use of an ambient scribe for clinic note documentation during this visit. [facility] Surgical History (Updated 06/03/22 @ 09:27 by Landy Kaiser CMA) Hx of oral surgery Hx of bladder endoscopy Hx of colonoscopy Hx of tonsillectomy History of ear surgery Family History (Updated 06/03/22 @ 09:30 by Landy Kaiser CMA) Mother No problems noted. Father Diabetes Family history of prostate problems High cholesterol Arthritis Son Stomach problems Daughter Anxiety Social History (Updated 06/03/22 @ 09:28 by Landy Kaiser CMA) Alcohol intake: current Alcohol intake frequency: holidays/special occasions only Patient Tobacco Use Status: Former Tobacco user Review of Systems Const All systems reviewed & are unremarkable except as noted in HPI and below Physical Exam Vital Signs: Last Vital Signs Temp 97.9 F 03/25/25 08:35 Pulse 73 03/25/25 08:35 BP 152/88 H 03/25/25 08:35 Pulse Ox 98 03/25/25 08:35 Oxygen Delivery Method Room Air 03/25/25 08:35 BMI result Body Mass Index 40.7 Results AMB Urinalysis, Automated UA Leukoctes 0 Allison/uL Last Edit by Rosemarie Olsen CMA on 03/25/25 09:13 UA Nitrite Negative Last Edit by Rosemarie Olsen CMA on 03/25/25 09:13 UA Urobilinogen 0.2 mg/dL Last Edit by Rosemarie Olsen CMA on 03/25/25 09: 13 UA Protein 0 mg/dL Last Edit by Rosemarie Olsen CMA on 03/25/25 09:13 UA pH 6.0 Last Edit by Rosemarie Olsen CMA on 03/25/25 09:13 UA Blood 0 Mika/uL Last Edit by Rosemarie Olsen CMA on 03/25/25 09:13 UA Specific [place] 1.005 Last Edit by Rosemarie Olsen CMA on 03/25/25 09 :13 UA Ketone Negative Last Edit by Rosemarie Olsen CMA on 03/25/25 09:13 UA Bilirubin 0 mg/dL Last Edit by Rosemarie Olsen CMA on 03/25/25 09:13 UA Glucose 0 mg/dL Last Edit by Rosemarie Olsen CMA on 03/25/25 09:13 Results Reviewed Results Reviewed: Laboratory Last Values Urine pH (Auto) 6.0 03/25/25 08:51 Specific [place] (Auto) 1.005 03/25/25 08:51 Urine Protein (Auto) 0 mg/dL 03/25/25 08:51 Glucose (UA)(Auto) 0 mg/dL 03/25/25 08:51 Urine Ketones (Auto) Negative 03/25/25 08:51 Urine Blood (Auto) 0 Mika/uL 03/25/25 08:51 Urine Nitrite (Auto) Negative 03/25/25 08:51 Urine Bilirubin (Auto) 0 mg/dL 03/25/25 08:51 Urine Urobilinogen (Auto) 0.2 mg/dL 03/25/25 08:51 Leukocyte Esterase (Auto) 0 Allison/uL 03/25/25 08:51 Assessment & Plan Assessment & Plan (1) Back pain: Code(s): M54.9 - Dorsalgia, unspecified Qualifiers: Back pain location: low back pain Chronicity: acute Back pain laterality: right Sciatica presence: with sciatica Sciatica laterality: sciatica of right side Qualified Code(s): M54.41 - Lumbago with sciatica, right side Plan Most likely a muscle strain with sciatica UA is negative Plan - Alternate Tylenol and ibuprofen consistently for pain relief. - Consider a muscle relaxant to help with muscle spasms. - Physical therapy is recommended if there is no improvement, to learn pain management techniques. - Use a heating pad or ice for inflammation control. - follow up with PCP Orders: Orders AMB Urinalysis Automated Today Z13.9 - Encounter for screening, unspecified Medications: New cyclobenzaprine 5 mg PO Q8H PRN 20 tabs 0RF Muscle Spasm Coding Level of Care Code Est Pt Level 3 (17195) Diagnoses Acute right-sided low back pain with right-sided sciatica M54.41 Back pain location: low back pain Chronicity: acute Back pain laterality: right Sciatica presence: with sciatica Sciatica laterality: sciatica of right side
[2025-03-25 08:35] VITALS: BP 152/88; PULSE 73; TEMP 36.6; O2SAT 98; BMI 40.7
== END 2025-03-25 09:19 | disposition home or self-care (01) ==
PROVIDERS: PCP Internal Medicine; Visit Provider Physician Assistant Medical
DX: Z13.9 Encounter for screening, unspecified (principal); M54.41 Lumbago with sciatica, right side

== ENCOUNTER → 2025-03-25 08:05 | Outpatient (BNVA) | payer OTHER, SELFPAY | PROVIDERS: PCP Internal Medicine; Visit Provider Physician Assistant Medical | DX: M54.41 Lumbago with sciatica, right side (principal) | CPT/HCPCS: 81003 ==